=== PATIENT | female | born 1960 | race Caucasian/White ===

== ENCOUNTER → 2017-06-21 | Outpatient (CLI) | payer MEDICARE, MEDICAID ==
--- NOTE | 2017-06-25 09:46 | Diagnostic Imaging Report ---
Bilateral screening mammogram 2D views The current study was also evaluated with a Computer Aided Detection (CAD) system. Indication: Screening. No current complaints stated on the questionnaire. COMPARISON: None. This is a baseline exam. FINDINGS: The breasts are composed of heterogeneously dense parenchyma which may decrease mammographic sensitivity. The patient is mentally challenged and could not fully cooperate for optimal views with particularly the MLO views not reaching into the pectoralis muscle margins. In the upper outer aspect of the right breast there is a oval circumscribed mass measuring 8 mm in size. The left breast demonstrate no definite focal lesion. Benign appearing calcifications are seen. IMPRESSION: 8mm oval mass in the upper outer aspect of the right breast is seen. Ultrasound evaluation is recommended. BI-RADS 0. ACR BI-RADS Category 0: Incomplete. (Needs additional imaging evaluation). Result letter will be mailed to the patient. Note: At least 10% of breast cancer is not imaged by mammography. Dictated by: Dictated on workstation # [id number]
== END ==
LOC: RAD 13:22
PROVIDERS: ATTEND Family Medicine
DX: Z12.31 Encounter for screening mammogram for malignant neoplasm of breast (principal)
CPT/HCPCS: 77067

== ENCOUNTER → 2017-07-17 | Outpatient (CLI) | payer MEDICARE, MEDICAID ==
--- NOTE | 2017-07-17 19:21 | Diagnostic Imaging Report ---
EXAMINATION: Right breast ultrasound. INDICATION: Upper outer right breast asymmetry, measuring 8 mm, seen on mammography of 06/21/17. FINDINGS: The upper outer quadrant was scanned with no underlying abnormality seen. IMPRESSION: Negative study. The focal asymmetry seen on mammography has well defined margins and is likely of benign etiology. No suspicious mass is noted. ACR BI-RADS Category 1: Negative. Result letter will be mailed to the patient. Note: At least 10% of breast cancer is not imaged by mammography. Dictated by: Dictated on workstation # [id number]
== END ==
LOC: RAD 10:20
PROVIDERS: ATTEND Nurse Practitioner Family
DX: R92.8 Other abnormal and inconclusive findings on diagnostic imaging of breast (principal)

== ENCOUNTER → 2017-10-03 | Outpatient (CLI) | payer MEDICARE, MEDICAID ==
--- NOTE | 2017-10-03 12:36 | Diagnostic Imaging Report ---
INDICATION: Recent fall. COMPARISON: None. FINDINGS: Three radiographic views of left hand were obtained. There is mild soft tissue swelling, posteriorly. Evaluation of underlying osseous structures demonstrates focal cortical deformity involving the posterior margins of a distal metacarpal. This is only seen on the lateral view and is felt to most likely represent the third metacarpal, although exact number cannot be definitively concluded. No other acute osseous abnormalities are seen. Joint spaces are maintained. No unexpected radiopaque foreign bodies are seen. IMPRESSION: 1. Distal metacarpal fracture only well seen on lateral view. Exact metacarpal number is indeterminate, but third metacarpal is suspected. Correlation with point tenderness is recommended. Dictated by: Dictated on workstation # [id number]
== END ==
LOC: RAD 11:04
PROVIDERS: ATTEND Nurse Practitioner Family
DX: S62.309A Unspecified fracture of unspecified metacarpal bone, initial encounter for closed fracture (principal); W19.XXXA Unspecified fall, initial encounter
CPT/HCPCS: 73130

== ENCOUNTER 2018-09-11 05:32 | Outpatient (CLI) | payer MEDICARE, MEDICAID ==
[~2018-09-11] VITALS: Ht 162.6 cm; Wt 59.9 kg
[2018-09-15] MEDS ORDERED: MULT-35 PO ×2 (09:55)
[2018-09-15] MEDS ORDERED: ACET325C5 PO ×2 (09:55)
[2018-09-15] MEDS ORDERED: LOPE2TAB34 PO ×2 (09:55)
[2018-09-15] MEDS ORDERED: DOCU-143 PO ×2 (09:55)
[2018-09-15] MEDS ORDERED: HYDR28OI2 TP ×2 (09:55)
[2018-09-15] MEDS ORDERED: DIPH25CA79 PO ×2 (09:55)
[2018-09-15] MEDS ORDERED: IBUP-1779 PO ×2 (09:55)
[2018-09-15] MEDS ORDERED: NPB.9O TP ×2 (09:55)
[2018-09-15] MEDS ORDERED: TETR15DR49 OP ×2 (09:55)
[2018-09-15] MEDS ORDERED: [UNRECOGNIZED DRUG - CODE] PO ×2 (09:55)
[2018-09-15] MEDS ORDERED: CALC500T7 PO ×2 (09:55)
[2018-09-15] MEDS ORDERED: DIVA500T PO ×4 (09:55)
[2018-09-15] MEDS ORDERED: CETI10CA PO ×2 (09:55)
[2018-09-15] MEDS ORDERED: ASCO500C17 PO ×2 (09:55)
== END 2018-09-15 10:02 | disposition home or self-care (01) ==
LOC: PREOP 05:32
PROVIDERS: ATTEND Dentist General Practice
DX: Z01.818 Encounter for other preprocedural examination (principal)

== ENCOUNTER 2018-09-16 11:02 | Day surgery (SDC) | payer MEDICARE, MEDICAID ==
[~2018-09-16] VITALS: Ht 162.6 cm; Wt 59.9 kg
[~2018-09-16 11:02] MED LIST: ACET325C5 PO; ASCO500C17 PO; CALC500T7 PO; CETI10CA PO; DIPH25CA79 PO; DIVA500T PO; DOCU-143 PO; HYDR28OI2 TP; IBUP-1779 PO; LOPE2TAB34 PO; MULT-35 PO; NPB.9O TP; TETR15DR49 OP; [UNRECOGNIZED DRUG - CODE] PO
--- OUTSIDE RECORDS SUMMARY | 2018-09-16 11:25 | XMS REPORT ---
Author Author ESEQUIEL SALAZAR [facility] DENTAL Address [address] [place] [address] Care Team Providers Care Awning Spreader Name Role Phone ESEQUIEL SALAZAR Unavailable PROBLEMS Unknown Problems ALLERGIES No Information SOCIAL HISTORY Never Assessed PLAN OF CARE Activity Details Follow Up Recall Reason: VITAL SIGNS MEDICATIONS Unknown Medications RESULTS No Results PROCEDURES Procedure Date Ordered Result Body Site PERIODIC ORAL EXAMINATION December 25, 2016 IMMUNIZATIONS No Known Immunizations
--- OUTSIDE RECORDS SUMMARY | 2018-09-16 11:25 | XMS REPORT | CCD ---
Author Author JHONATHAN REYNOLDS Unknown Address [address] [address] [id number] Care Team Providers Care Manager Biologics Name Role Phone KIMBERLEYEsthelaDAMON DDS Attphys Vital Signs Vital Sign Value Unit Date/Time Recent/Initial? Weight Measured 133 lbs 05/08/2016 07:12 Initial VS Height 64 in 05/08/2016 07:12 Initial VS BMI (Body Mass Index) 22.83 kg/m^2 05/08/2016 07:12 Initial VS BSA (Body Surface Area) 1.65 m^2 05/08/2016 07:12 Initial VS BP Systolic 154 mmHg 05/18/2016 09:48 Initial VS BP Diastolic 85 mmHg 05/18/2016 09:48 Initial VS Respiratory Rate 15 bpm 05/18/2016 09:48 Initial VS Heart Rate 71 bpm 05/18/2016 09:48 Initial VS O2 % BldC Oximetry 96 % 05/18/2016 09:48 Initial VS BP Systolic 133 mmHg 05/18/2016 10:08 Most Recent VS BP Diastolic 83 mmHg 05/18/2016 10:08 Most Recent VS Respiratory Rate 14 bpm 05/18/2016 10:08 Most Recent VS Heart Rate 69 bpm 05/18/2016 10:08 Most Recent VS O2 % BldC Oximetry 94 % 05/18/2016 10:08 Most Recent VS Allergies Allergy Code Allergy Type Reaction Status No Known Drug Allergies 0 No known drug allergies Active Procedures Procedure Code Procedure Type Date Unlisted procedure, dentoalveolar structures 16818 CPT 02/2016 History of Immunizations Unknown or Not Available. Problems Unknown or Not Available. Results Unknown or Not Available. Active Medications No Active Medications Medications Administered During Visit Unknown or Not Available. Encounters Encounter Diagnosis Diagnosis Code Start Date Other specified disorders of teeth and supporting structures K088 05/18/2016 Social History Smoking Status Code Start Date End Date Never smoker [id number] Patient Decision Aids Patient Decision Aid DENTAL PROCEDURE DISCHARGE INSTRUCTIONS Discharge Instructions You were admitted to [facility] on 05/18/2016 08:16 with a principal diagnosis of Other specified disorders of teeth and supporting structures You had the following procedures done: Unlisted procedure, dentoalveolar structures You were discharged from [facility] on 05/18/2016 11:07 Should you have any questions prior to discharge, please contact a member of your healthcare team. If you have left the hospital and have any questions, please contact your primary care physician. Chief Complaint and Reason For Visit Chief Complaint Date of Onset DEN EXTRACTIONS FILLINGS Function Status Unknown or Not Available. Plan of Care Unknown or Not Available. Referral/Transition of Care Unknown or Not Available.
[2018-09-16 11:30] VITALS: BP 142/90
[2018-09-16] MEDS ORDERED: LACTATED RINGERS 1,000 ML IV PRN (11:47)
[2018-09-16] MEDS ORDERED: DEXAMETHASONE 10 MG/ML (DECADRON) 1 ML VIAL ONE (12:10)
[2018-09-16] MEDS ORDERED: LIDOCAINE PF 2% 5 ML (XYLOCAINE) VIAL ONE (12:10)
[2018-09-16] MEDS ORDERED: fentaNYL INJECTION 100 MCG/2 ML AMP ONE (12:10)
[2018-09-16] MEDS ORDERED: proPOfol 200 MG/20 ML (DIPRIVAN) VIAL IV ONE (12:10)
[2018-09-16] MEDS ORDERED: ONDANSETRON 4 MG/2 ML (SDV) Z0FRAN ONE (12:10)
[2018-09-16] MEDS ORDERED: PHENYLEPHRINE 0.25% NASAL SPR (NEO-SYNEPHRINE) 15 ML NS ONE (12:36)
[2018-09-16] MEDS ORDERED: ROCURONIUM 10 MG/ML 5 ML SYRINGE IV ONE (12:56)
[2018-09-16] MEDS ORDERED: GLYCOPYRROLATE 0.2 MG/ML (ROBINUL) 2 ML VIAL ONE (13:24)
[2018-09-16] MEDS ORDERED: NEOSTIGMINE 1 MG/ML 5 ML SYRINGE ONE (13:24)
[2018-09-16] MEDS ORDERED: SEVOFLURANE (ULTANE) 15 ML INHAL SOLN ONE (13:42)
[2018-09-16] MEDS ORDERED: HYDROmorphone 2 MG/ML VIAL (DILAUDID) IV ONE (13:45)
[2018-09-16] MEDS ORDERED: ONDANSETRON 4 MG/2 ML (SDV) Z0FRAN IVP PRN (13:45)
[2018-09-16 14:00] VITALS: BP 99/66
--- NOTE | 2018-09-16 14:29 | Anesthesia-General Post-Op ---
General Patient Condition Mental Status/LOC: Same as Preop Cardiovascular: Satisfactory Nausea/Vomiting: Absent Respiratory: Satisfactory Pain: Controlled Complications: Absent Post Op Complications Complications None Follow Up Care/Instructions Patient Instructions None needed. Anesthesia/Patient Condition Patient Condition Patient is doing well, no complaints, stable vital signs, no apparent adverse anesthesia problems. SAHRA MARCUS DO Sep 16, 2018 14:29
[2018-09-16 14:30] VITALS: BP 113/69
[2018-09-16 15:00] VITALS: BP 105/75
--- NOTE | 2018-09-17 12:09 | OPERATIVE REPORT ---
DATE OF SERVICE: PREOPERATIVE DIAGNOSIS: Dental caries, periodontitis and . POSTOPERATIVE DIAGNOSIS: Dental caries, periodontitis and . OPERATIONS PERFORMED: Repair of numerous carious teeth, extraction of others, prophylaxis and scaling and subgingival irrigation. DESCRIPTION OF PROCEDURE: The patient was treated on an outpatient basis on following suitable premedication, taken to the OR and placed in the supine position up on the table. Anesthesia was induced. A nasotracheal intubation was accomplished and general anesthesia administered. A throat pack consisting of one wet 4 x 4 gauze sponge was placed in the oropharynx and maintained in place throughout the procedure. Mouth opening was maintained at all times with simple digital pressure and no mechanical retractors of any kind were ever utilized. Caries was removed and composite resin utilized to repair teeth numbers 3, 4, 5, 10 and 18. Teeth numbers 20, 21 and 23 were extracted. Prophylaxis was accomplished in the complete oral cavity. Subgingival scaling and irrigation was accomplished. The patient tolerated this procedure quite nicely. Following a thorough debridement of the oral cavity with a copious low water, adequate suction and compressed air, the throat pack was removed. The patient was extubated and taken to recovery in quite satisfactory condition. Job ID: [id number] DocumentID: [id number] Dictated Date: 09/17/2018 10:09:09 Ground Intelligence Officer Date: 09/17/2018 12:08:37 Dictated By: DARNELL CALDERON DDS
== END 2018-09-16 15:05 | disposition home or self-care (01) ==
LOC: SDC 11:02
PROVIDERS: ATTEND Dentist General Practice
DX: K02.9 Dental caries, unspecified (principal); K05.30 Chronic periodontitis, unspecified; Z11.2 Encounter for screening for other bacterial diseases; G40.909 Epilepsy, unspecified, not intractable, without status epilepticus; Z79.899 Other long term (current) drug therapy
CPT/HCPCS: 87081

== ENCOUNTER 2019-07-17 13:51 | Outpatient (RCR) | payer MEDICARE, MEDICAID ==
[2019-06-25 15:50] LABS: ABSOLUTE RETIC # 45 10e9/L (24-90); BASOPHILS % (AUTO) 0 % (0-10); EOSINOPHILS # (AUTO) 0.9 10^3/uL (0.0-0.3); EOSINOPHILS % (AUTO) 15 % (0-10); HEMATOCRIT 42 % (35-52); HEMOGLOBIN 13.8 G/DL (11.5-16.0); LYMPHOCYTES % (AUTO) 34 % (12-44); MEAN CORPUSCULAR HEMOGLOBIN 32 PG (25-34); MEAN CORPUSCULAR HGB CONC 33 G/DL (32-36); MEAN CORPUSCULAR VOLUME 98 FL (80-99); MEAN PLATELET VOLUME 12.3 FL (7.4-10.4); MONOCYTES # (AUTO) 0.6 X 10^3 (0.0-1.0); MONOCYTES % (AUTO) 10 % (0-12); NEUTROPHILS # (AUTO) 2.4 X 10^3 (1.8-7.8); NEUTROPHILS % (AUTO) 40 % (42-75); PLATELET COUNT 119 10^3/uL (130-400); RED CELL DISTRIBUTION WIDTH 15.3 % (10.0-14.5); RETICULOCYTE % 1.05 % (0.50-2.40); WHITE BLOOD COUNT 5.9 10^3/uL (4.3-11.0)
[2019-06-25 16:07] LABS: ALANINE AMINOTRANSFERASE 13 U/L (0-55); ALBUMIN 3.7 GM/DL (3.2-4.5); ALKALINE PHOSPHATASE 92 U/L (40-136); BILIRUBIN,TOTAL 0.2 MG/DL (0.1-1.0); BUN/CREATININE RATIO 41; CALCIUM 9.5 MG/DL (8.5-10.1); CARBON DIOXIDE 33 MMOL/L (21-32); CHLORIDE 102 MMOL/L (98-107); CREATININE SERUM 0.66 MG/DL (0.60-1.30); GFR ESTIMATED > 60; GLUCOSE 83 MG/DL (70-105); POTASSIUM 4.9 MMOL/L (3.6-5.0); SODIUM 138 MMOL/L (135-145); TOTAL PROTEIN 8.1 GM/DL (6.4-8.2)
[2019-06-25 18:17] LABS: ANISOCYTOSIS SLIGHT; BAND NEUTROPHILS 1 %; BASOPHILS % (MANUAL) 0 %; EOSINOPHILS % (MANUAL) 18 %; LYMPHOCYTES % (MANUAL) 37 %; MONOCYTES % (MANUAL) 5 %; NEUTROPHILS % (MANUAL) 39 %
[2019-06-26 00:02] LABS: HEPATITIS C ANTIBODY C Non-Reactive (Non-Reactive)
== END 2019-09-23 | disposition home or self-care (01) ==
LOC: ONC 13:51
PROVIDERS: ATTEND Internal Medicine Hematology & Oncology
DX: D69.6 Thrombocytopenia, unspecified (principal)
CPT/HCPCS: 36415; 80053; 80074; 82607; 82728; 82746; 83540; 85007; 85027; 85045; 86703; 99213

== ENCOUNTER → 2019-10-16 | Outpatient (CLI) | payer MEDICARE, MEDICAID ==
[2019-10-16 10:07] LABS: BASOPHILS % (AUTO) 1 % (0-10); EOSINOPHILS # (AUTO) 0.7 10^3/uL (0.0-0.3); EOSINOPHILS % (AUTO) 15 % (0-10); HEMATOCRIT 42 % (35-52); HEMOGLOBIN 13.6 G/DL (11.5-16.0); LYMPHOCYTES # (AUTO) 2.1 X 10^3 (1.0-4.0); LYMPHOCYTES % (AUTO) 43 % (12-44); MEAN CORPUSCULAR HEMOGLOBIN 32 PG (25-34); MEAN CORPUSCULAR HGB CONC 32 G/DL (32-36); MEAN CORPUSCULAR VOLUME 99 FL (80-99); MEAN PLATELET VOLUME 11.5 FL (7.4-10.4); MONOCYTES # (AUTO) 0.6 X 10^3 (0.0-1.0); MONOCYTES % (AUTO) 12 % (0-12); NEUTROPHILS # (AUTO) 1.4 X 10^3 (1.8-7.8); NEUTROPHILS % (AUTO) 29 % (42-75); PLATELET COUNT 110 10^3/uL (130-400); RED CELL DISTRIBUTION WIDTH 15.2 % (10.0-14.5); WHITE BLOOD COUNT 4.9 10^3/uL (4.3-11.0)
== END ==
LOC: EDSTATUS 09-24 09:52 → ONC 09:53
PROVIDERS: ATTEND Internal Medicine Hematology & Oncology
DX: D69.6 Thrombocytopenia, unspecified (principal)
CPT/HCPCS: 85025; 99213

== ENCOUNTER → 2020-08-22 | Outpatient (CLI) | payer MEDICARE, MEDICAID ==
[~2020-08-22] MED LIST changes: -ACET325C5 PO; +ACET325C7 PO; +[UNRECOGNIZED DRUG - CODE] PO; -[UNRECOGNIZED DRUG - CODE] PO
--- NOTE | 2020-08-22 14:51 | Diagnostic Imaging Report ---
INDICATION: Cough and hypoxia. TECHNIQUE/COMPARISON: PA and lateral views of the chest were obtained. There is no previous study available at this time for comparison. FINDINGS: The heart size and pulmonary vascularity are within normal limits. There is background air trapping indicating emphysema. There is focal increased density which appears to reside within the lateral segment of the right middle lobe. There is mild linear atelectasis and/or scarring in the right perihilar region as well. No significant pleural fluid or pneumothorax is identified. IMPRESSION: Probable infiltrate involving primarily the right middle lobe. This could be due to pneumonia and clinical correlation is recommended. Short-term radiographic followup would be useful to document resolution and to exclude other underlying pathology. Dictated by: Dictated on workstation # [id number]
== END ==
LOC: RAD 14:23
PROVIDERS: ATTEND Nurse Practitioner Family
DX: R05 Cough (principal); R09.02 Hypoxemia
CPT/HCPCS: 71046

== ENCOUNTER 2021-01-19 09:08 | Emergency (ER) | payer MEDICARE, MEDICAID ==
[~2021-01-19] VITALS: Ht 162.5 cm; Wt 56.8 kg
[2021-01-19 09:33] LABS: HEMOGLOBIN 12.9 g/dL (11.5-16.0)
[2021-01-19 09:35] LABS: BASOPHILS % (AUTO) 0 % (0-10); EOSINOPHILS % (AUTO) 0 % (0-10); HEMATOCRIT 39 % (35-52); LYMPHOCYTES # (AUTO) 1.4 10^3/uL (1.0-4.0); LYMPHOCYTES % (AUTO) 30 % (12-44); MEAN CORPUSCULAR HEMOGLOBIN 32 pg (25-34); MEAN CORPUSCULAR HGB CONC 33 g/dL (32-36); MEAN CORPUSCULAR VOLUME 96 fL (80-99); MEAN PLATELET VOLUME 11.8 fL (9.0-12.2); MONOCYTES # (AUTO) 0.8 10^3/uL (0.0-1.0); MONOCYTES % (AUTO) 16 % (0-12); NEUTROPHILS # (AUTO) 2.4 10^3/uL (1.8-7.8); NEUTROPHILS % (AUTO) 52 % (42-75); PLATELET COUNT 89 10^3/uL (130-400); WHITE BLOOD COUNT 4.6 10^3/uL (4.3-11.0)
[2021-01-19 09:37] LABS: CHLORIDE 97 MMOL/L (98-107); POTASSIUM 4.5 MMOL/L (3.6-5.0); SODIUM 135 MMOL/L (135-145)
[2021-01-19 09:38] LABS: CALCIUM 8.9 MG/DL (8.5-10.1)
[2021-01-19 09:39] LABS: GLUCOSE 112 MG/DL (70-105)
[2021-01-19 09:40] LABS: CARBON DIOXIDE 27 MMOL/L (21-32)
[2021-01-19 09:43] LABS: CREATININE SERUM 0.72 MG/DL (0.60-1.30); GFR ESTIMATED > 60
[2021-01-19 09:44] LABS: BILIRUBIN,URINE NEGATIVE (NEGATIVE); CLARITY,URINE CLEAR; COLOR,URINE YELLOW; GLUCOSE, URINE (UA) NEGATIVE (NEGATIVE); KETONES,URINE TRACE (NEGATIVE); LEUKOCYTE ESTERASE ,URINE NEGATIVE (NEGATIVE); NITRITE,URINE POSITIVE (NEGATIVE); PROTEIN,URINE NEGATIVE (NEGATIVE)
[2021-01-19 09:44] LABS: BUN/CREATININE RATIO 33
--- NOTE | 2021-01-19 09:46 | ED General ---
General Chief Complaint: Altered Mental Status Stated Complaint: AMS Nursing Triage Note: Pt to ed per ems from [facility], staff c/o pt lethargic, not acting like herself and not responding to staff. Nursing Sepsis Screen: No Definite Risk Source of Information: Caregiver, EMS Exam Limitations: Physical Impairments History of Present Illness Date Seen by Provider: Jan 19, 2021 Time Seen by Provider: 09:20 Initial Comments Patient is a 60-year-old female who [facility] the emergency department [facility] with a chief complaint of acting "lethargic" and not interacting with staff. Patient has a history of a pervasive developmental disorder and is known to be nonverbal. She communicates by facial interaction and physical demeanor. Reportedly the patient is acting sleepier than normal and not really engaging with staff. It is not possible to obtain a review of systems from this patient or history of present illness secondary to her nonverbal state. Patient's vital signs are stable on arrival. She is not tachycardic or hypo tensive. Her oxygen saturations are 92% on room air. She exhibits no increased work of breathing or respiratory distress. Timing/Duration: 1-3 Hours Allergies and Home Medications Allergies Coded Allergies: No Known Drug Allergies (Unverified , 09/15/18) Home Medications Acetaminophen 325 Mg Capsule, 650 MG PO Q6H PRN for PAIN-MILD, (Reported) Ascorbic Acid 500 Mg Capsule, 500 MG PO DAILY, (Reported) Calcium Carbonate 200 Mg Tab.chew, 400 MG PO Q4H PRN for INDIGESTION, (Reported) Cetirizine HCl 10 Mg Capsule, 10 MG PO HS, (Reported) Diphenhydramine HCl 25 Mg Capsule, 25 MG PO Q6H PRN for CONGESTION, (Reported) Divalproex Sodium 500 Mg Tablet.dr, 500 MG PO DAILY, (Reported) Divalproex Sodium 500 Mg Tablet.dr, 1,000 MG PO HS, (Reported) Docusate Sodium 100 Mg Capsule, 100 MG PO BID, (Reported) Guaifenesin/Dextromethorphan 118 Ml Liquid, 10 ML PO Q4H PRN for COUGH, (Reported) Hydrocortisone Acetate 28 Gm Oint...g., 28 GM TP PRN, (Reported) Ibuprofen 400 Mg Tablet, 400 MG PO Q6H PRN for PAIN, (Reported) Loperamide HCl 2 Mg Tablet, 2 MG PO PRN PRN for DIARRHEA, (Reported) Multivitamin 1 Each Tablet, 1 EACH PO DAILY, (Reported) Neomycin/Polymyxin/Bacitracin 0.9 Gm Oint, 0.9 GM TP PRN, (Reported) Tetrahydrozoline HCl 15 Ml Drops, 2 DROPS OP Q6H PRN for DRY EYES, (Reported) Patient Home Medication List Home Medication List Reviewed: Yes Review of Systems Review of Systems Constitutional: see HPI : No Review of systems unobtainable from this nonverbal patient All Other Systems Reviewed Negative Unless Noted: Yes Past Feoiotz-Zfpftz-Kykixl Hx Patient Social History Alcohol Use: Denies Use Smoking Status: Never a Smoker Recent Infectious Disease Expo: No Recent Hopitalizations: No Seasonal Allergies Seasonal Allergies: Yes Past Medical History Surgeries: No (UNKNOWN) Respiratory: No Cardiac: No Neurological: Yes (LAST SEIZURE 2013) Seizure Disorder Reproductive Disorders: No Sexually Transmitted Disease: No HIV/AIDS: No Gastrointestinal: Yes Chronic Constipation Musculoskeletal: No Endocrine: No Cancer: No Psychosocial: Yes (SEVERE INTELECTUAL DISABILITY ) Integumentary: No Blood Disorders: No Adverse Reaction/Blood Tranf: No (N/A) Physical Exam Vital Signs Vital Signs - First Documented 01/19/21 09:12 Temp 35.2 Pulse 70 Resp 18 B/P (MAP) 116/71 (86) Pulse Ox 94 Capillary Refill : Less Than 3 Seconds Height, Weight, BMI Height: 5'4.00" Weight: 132lbs. 0.0oz. 59.692027dy; 21.00 BMI Method: General Appearance: No Apparent Distress (Appears to be sleeping.), WD/WN Eyes: Bilateral Eye Normal Inspection, Bilateral Eye PERRL Neck: Normal Inspection Respiratory: Lungs Clear, Normal Breath Sounds, No Accessory Muscle Use, No Respiratory Distress Cardiovascular: Regular Rate, Rhythm Gastrointestinal: Normal Bowel Sounds, No Pulsatile Mass, Non Tender, Soft Extremity: Normal Capillary Refill, Normal Inspection, Non Tender Progress/Results/Core Measures Suspected Sepsis Recent Fever Within 48 Hours: No Infection Criteria Present: None New/Unexplained Altered Menta: No Sepsis Screen: No Definite Risk SIRS Temperature: Pulse: 70 Respiratory Rate: 18 Laboratory Tests 01/19/21 09:14: White Blood Count 4.6 Blood Pressure 116 /71 Mean: 86 Laboratory Tests 01/19/21 09:14: Creatinine 0.72, Platelet Count 89L Results/Orders Lab Results Laboratory Tests Test 01/19/21 09:14 01/19/21 09:18 01/19/21 09:38 Range/Units White Blood Count 4.6 4.3-11.0 10^3/uL Red Blood Count 4.06 3.80-5.11 10^6/uL Hemoglobin 12.9 11.5-16.0 g/dL Hematocrit 39 35-52 % Mean Corpuscular Volume 96 80-99 fL Mean Corpuscular Hemoglobin 32 25-34 pg Mean Corpuscular Hemoglobin Concent 33 32-36 g/dL Red Cell Distribution Width 14.4 10.0-14.5 % Platelet Count 89 L 130-400 10^3/uL Mean Platelet Volume 11.8 9.0-12.2 fL Immature Granulocyte % (Auto) 1 % Neutrophils (%) (Auto) 52 42-75 % Lymphocytes (%) (Auto) 30 12-44 % Monocytes (%) (Auto) 16 H 0-12 % Eosinophils (%) (Auto) 0 0-10 % Basophils (%) (Auto) 0 0-10 % Neutrophils # (Auto) 2.4 1.8-7.8 10^3/uL Lymphocytes # (Auto) 1.4 1.0-4.0 10^3/uL Monocytes # (Auto) 0.8 0.0-1.0 10^3/uL Eosinophils # (Auto) 0.0 0.0-0.3 10^3/uL Basophils # (Auto) 0.0 0.0-0.1 10^3/uL Immature Granulocyte # (Auto) 0.1 0.0-0.1 10^3/uL Sodium Level 135 135-145 MMOL/L Potassium Level 4.5 3.6-5.0 MMOL/L Chloride Level 97 L 98-107 MMOL/L Carbon Dioxide Level 27 21-32 MMOL/L Anion Gap 11 5-14 MMOL/L Blood Urea Nitrogen 24 H 7-18 MG/DL Creatinine 0.72 0.60-1.30 MG/DL Estimat Glomerular Filtration Rate > 60 BUN/Creatinine Ratio 33 Glucose Level 112 H 70-105 MG/DL Calcium Level 8.9 8.5-10.1 MG/DL Valproic Acid (Depakene) Level 65.7 50.0-100.0 UG/ML Urine Color YELLOW Urine Clarity CLEAR Urine pH 6.0 5-9 Urine Specific [place] >=1.030 1.016-1.022 Urine Protein NEGATIVE NEGATIVE Urine Glucose (UA) NEGATIVE NEGATIVE Urine Ketones TRACE H NEGATIVE Urine Nitrite POSITIVE H NEGATIVE Urine Bilirubin NEGATIVE NEGATIVE Urine Urobilinogen 1.0 < = 1.0 MG/DL Urine Leukocyte Esterase NEGATIVE NEGATIVE Urine RBC (Auto) TRACE-I NEGATIVE Urine RBC 2-5 H /HPF Urine WBC 2-5 /HPF Urine Squamous Epithelial Cells RARE /HPF Urine Crystals NONE /LPF Urine Bacteria LARGE H /HPF Urine Casts NONE /LPF Urine Mucus NEGATIVE /LPF Urine Culture Indicated YES My Orders Orders - MIRIAM FRANCO MD Cbc With Automated Diff (01/19/21 09:26) Basic Metabolic Panel (01/19/21 09:26) Ua Culture If Indicated (01/19/21 09:26) Valproic Acid (01/19/21 09:48) Urine Culture (01/19/21 09:38) Ceftriaxone For Iv Use (Rocephin For I (01/19/21 10:30) Ns Iv 1000 Ml (Sodium Chloride 0.9%) (01/19/21 10:30) Medications Given in ED Current Medications Medications Dose Ordered Sig/Noemi Route Start Time Stop Time Status Last Admin Dose Admin Ceftriaxone Sodium 1000 mg/ Sterile Water 10 ml @ 200 mls/hr ONCE ONCE IV 01/19/21 10:30 01/19/21 10:32 DC 01/19/21 10:28 200 MLS/HR Vital Signs/I&O 01/19/21 09:12 Temp 35.2 Pulse 70 Resp 18 B/P (MAP) 116/71 (86) Pulse Ox 94 Capillary Refill : Less Than 3 Seconds Blood Pressure Mean: 86 Progress Note : Time: 10:41 Progress Note Patient is awake alert, fiddling with medical equipment. No acute distress. Labs have been evaluated, no abnormalities on CBC or chemistry. Patient is noted to have a urinary tract infection that is nitrite positive. Given a gram of Rocephin here in the department as well as a liter of fluids. No clinical or objective findings to warrant further studies from the emergency department. I do not believe that the patient needs admission at this time. Will be discharged home with Keflex and follow-up with her primary care physician. ECG Initial ECG Impression: 3rd Degree AV Block Departure Impression Primary Impression: Urinary tract infection Qualified Codes: N39.0 - Urinary tract infection, site not specified Disposition: 01 HOME, SELF-CARE Condition: Stable Departure-Patient Inst. Decision time for Depature: 10:43 Referrals: DAVIAN CONKLIN MD (PCP/Family) Primary Care Physician Patient Instructions: Urinary Tract Infection, Adult (DC) Add. Discharge Instructions: Encourage plenty of fluids so that she stays well-hydrated. Give the antibiotics, Keflex, 3 times daily for the next 7 days. Return to the emergency room for fever, vomiting, change in mental status or any other emergent concerning symptoms. Scripts Cephalexin (Cephalexin) 500 Mg Tablet 500 MG PO TID, #21 TAB 0 Refills Prov: MIRIAM FRANCO MD 01/19/21 MIRIAM FRANCO MD Jan 19, 2021 09:46
[2021-01-19 09:52] LABS: BACTERIA,URINE LARGE /HPF; SQUAMOUS EPITHELIAL CELL,UR RARE /HPF
[2021-01-19] MEDS ORDERED: cefTRIAXone FOR IV USE 1,000 MG in WATER (STERILE) FOR INJECTION 10 ML IV ONE (10:30)
[2021-01-19] MEDS ORDERED: NS IV 1000 ML 1,000 ML IV SCH (10:30)
[2021-01-19] MEDS ORDERED: CEPH500T PO (10:48)
[2021-01-19 11:50] VITALS: BP 100/65
== END 2021-01-19 11:50 | disposition home or self-care (01) ==
LOC: EDUNIT# 09:08 → ER 09:09
DX: N39.0 Urinary tract infection, site not specified (principal); F84.9 Pervasive developmental disorder, unspecified; G40.909 Epilepsy, unspecified, not intractable, without status epilepticus; K59.09 Other constipation
CPT/HCPCS: 36415; 80048; 80164; 81000; 85025; 87077; 87088; 87186; 99283

== ENCOUNTER → 2021-12-01 | Outpatient (CLI) | payer MEDICARE, MEDICAID ==
[~2021-12-01] MED LIST changes: +CEPH500T PO
--- NOTE | 2021-12-01 11:47 | Diagnostic Imaging Report ---
Digital mammogram bilateral screening This study was compared to the prior exam of 06/21/2017. At this time, there are no current complaints. This study was technically difficult as the patient is mentally challenged and it was difficult for her to cooperate. The fibroglandular tissue in both breasts is heterogeneously dense. This does limit the sensitivity of this exam. A few scattered microcalcifications have developed in the left breast since the prior exam. These seems similar in appearance to the other microcalcifications in the left breast and consequently I suspect that they are benign. There is no primary or secondary sign of malignancy noted. IMPRESSION: 1. There is no evidence for malignancy on this suboptimal exam. 2. The newly developed calcifications within the left breast are most likely benign. Even so, I would recommend that a short-term (6 month) follow-up mammogram of the left breast be obtained for continued evaluation. ACR category 3 ACR BI-RADS Category 3: Probably benign findings. Result letter will be mailed to the patient. Note: At least 10% of breast cancer is not imaged by mammography. Dictated on workstation # [id number]
== END ==
LOC: RAD 10:07
PROVIDERS: ATTEND Nurse Practitioner Family
DX: Z12.31 Encounter for screening mammogram for malignant neoplasm of breast (principal); R92.1 Mammographic calcification found on diagnostic imaging of breast
CPT/HCPCS: 77063; 77067

== ENCOUNTER 2022-07-05 16:20 | Inpatient (IN) | payer MEDICARE, MEDICAID ==
[~2022-07-05] VITALS: Ht 162.5 cm; Wt 53.1 kg
[~2022-07-05 16:20] MED LIST changes: -TETR15DR49 OP; +TETR15DR49 OU
--- NOTE | 2022-07-05 17:13 | Diagnostic Imaging Report ---
CLINICAL HISTORY: Fall. Right hip pain. COMPARISON: None. TECHNIQUE: 3 views of the pelvis and right hip. FINDINGS: Nondisplaced fracture seen involving the neck of the proximal right femur. No dislocation of the right femur. No fracture is identified in the pelvis. No suspicious focal osseous lesions are seen. IMPRESSION: 1. Nondisplaced fracture involving the neck of the proximal right femur. No dislocation of the right hip. Dictated by: Dictated on workstation # [id number]
--- NOTE | 2022-07-05 17:16 | Diagnostic Imaging Report ---
CLINICAL HISTORY: Fall. Right hip pain. COMPARISON: None. TECHNIQUE: Four views of the right femur. FINDINGS: Nondisplaced fracture is seen involving the neck of the proximal right femur. No dislocation of the right hip. No suspicious lesions are seen in the right femur. IMPRESSION: 1. Nondisplaced fracture involving the neck of the proximal right femur. Dictated by: Dictated on workstation # [id number]
[2022-07-05] MEDS ORDERED: morphine INJ 10 MG/ML 1ML (SYR OR VIAL) IVP STA (17:59)
--- NOTE | 2022-07-05 17:59 | ED Lower Extremity ---
General Chief Complaint: Trauma-Non Activation Stated Complaint: FALL/RT HIP PAIN Nursing Triage Note: from [facility], patient is reported to have fallen on her right hip. now will not bear weight on the right side. 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 Caregiver states pt stood up and tripped landing on her right side. There was no head trauma or LOC reported. Patient usually is ambulatory but has not been willing to bear weight since the time of the fall. Patient is nonverbal and is a resident at [facility]. She presents with a caregiver who is familiar with her baseline. Onset: just prior to arrival Severity: moderate Pain/Injury Location: right hip Method of Injury: fell Allergies and Home Medications Allergies Coded Allergies: No Known Drug Allergies (Unverified , 09/15/18) Patient Home Medication List Home Medication List Reviewed: Yes Acetaminophen (Tylenol) 325 Mg Capsule, 650 MG PO Q6H PRN for PAIN-MILD, (Reported) Entered as Reported by: PAIGE NAVARRO on 09/15/18 0955 Ascorbic Acid (Vitamin C) 500 Mg Capsule, 500 MG PO DAILY, (Reported) Entered as Reported by: PAIGE NAVARRO on 09/15/18 0955 Calcium Carbonate (Tums) 200 Mg Tab.chew, 400 MG PO Q4H PRN for INDIGESTION, (Reported) Entered as Reported by: PAIGE NAVARRO on 09/15/18 0955 Cephalexin (Cephalexin) 500 Mg Tablet, 500 MG PO TID Prescribed by: MIRIAM FRANCO on 01/19/21 1048 Cetirizine HCl (Zyrtec) 10 Mg Capsule, 10 MG PO HS, (Reported) Entered as Reported by: PAIGE NAVARRO on 09/15/18 0955 Diphenhydramine HCl (Benadryl) 25 Mg Capsule, 25 MG PO Q6H PRN for CONGESTION, (Reported) Entered as Reported by: PAIGE NAVARRO on 09/15/18 0955 Divalproex Sodium (Depakote) 500 Mg Tablet.dr, 500 MG PO DAILY, (Reported) Entered as Reported by: PAIGE NAVARRO on 09/15/18954 Divalproex Sodium (Depakote) 500 Mg Tablet., 1,000 MG PO HS, (Reported) Entered as Reported by: PAIGE NAVARRO on 09/15/18954 Docusate Sodium (Colace) 100 Mg Capsule, 100 MG PO BID, (Reported) Entered as Reported by: PAIGE NAVARRO on 09/15/18954 Guaifenesin/Dextromethorphan (Robafen Dm Cough Liquid) 118 Ml Liquid, 10 ML PO Q4H PRN for COUGH, (Reported) Entered as Reported by: PAIGE NAVARRO on 09/15/18954 Hydrocortisone Acetate (Hydrocortisone) 28 Gm Oint...g., 28 GM TP PRN, (Reported) Entered as Reported by: PAIGE NAVARRO on 09/15/18954 Ibuprofen (Ibuprofen) 400 Mg Tablet, 400 MG PO Q6H PRN for PAIN, (Reported) Entered as Reported by: PAIGE NAVARRO on 09/15/18954 Loperamide HCl (Loperamide) 2 Mg Tablet, 2 MG PO PRN PRN for DIARRHEA, (Reported) Entered as Reported by: PAIGE NAVARRO on 09/15/18954 Multivitamin (Daily Multiple Vitamin) 1 Each Tablet, 1 EACH PO DAILY, (Reported) Entered as Reported by: PAIGE NAVARRO on 09/15/18954 Neomycin/Polymyxin/Bacitracin (Triple Antibiotic Ointment) 0.9 Gm Oint, 0.9 GM TP PRN, (Reported) Entered as Reported by: PAIGE NAVARRO on 09/15/18954 Tetrahydrozoline HCl (Tetrahydrozoline HCl) 15 Ml Drops, 2 DROPS OP Q6H PRN for DRY EYES, (Reported) Entered as Reported by: PAIGE NAVARRO on 09/15/18954 Review of Systems Constitutional: see HPI EENTM: see HPI Respiratory: no symptoms reported Cardiovascular: no symptoms reported Gastrointestinal: no symptoms reported Genitourinary: no symptoms reported Musculoskeletal: other (right hip pain) Skin: no symptoms reported Psychiatric/Neurological: No Symptoms Reported Past Crdujpq-Mgedqt-Woeayr Hx Patient Social History Tobacco Use?: No Substance use?: No Alcohol Use?: No Seasonal Allergies Seasonal Allergies: Yes Past Medical History Surgeries: No (UNKNOWN) Respiratory: No Cardiac: No Neurological: Yes (LAST SEIZURE 2013) Seizure Disorder Reproductive Disorders: No Sexually Transmitted Disease: No HIV/AIDS: No Gastrointestinal: Yes Chronic Constipation Musculoskeletal: No Endocrine: No Cancer: No Psychosocial: Yes (SEVERE INTELECTUAL DISABILITY ) Integumentary: No Blood Disorders: No Adverse Reaction/Blood Tranf: No (N/A) Physical Exam Vital Signs Vital Signs - First Documented 07/05/22 16:25 Temp 36.2 Pulse 95 Resp 16 B/P (MAP) 90/65 (73) Pulse Ox 91 O2 Delivery Room Air Capillary Refill : Less Than 3 Seconds Height, Weight, BMI Height: 5'4.00" Weight: 132lbs. 0.0oz. 59.080921kh; 22.00 BMI Method: General Appearance: WD/WN, no apparent distress HEENT: PERRL/EOMI, normal ENT inspection, TMs normal, pharynx normal Neck: non-tender, full range of motion, supple, normal inspection Cardiovascular: normal peripheral pulses, regular rate, rhythm, no edema, no gallop, no JVD, no murmur Respiratory: chest non-tender, lungs clear, normal breath sounds, no respiratory distress, no accessory muscle use Gastrointestinal: normal bowel sounds, non tender, soft, no organomegaly, no pulsatile mass Back: normal inspection, no CVA tenderness, no vertebral tenderness Hips: right hip bone tenderness, right hip limited range of motion, right hip pain Progress/Results/Core Measures Results/Orders Lab Results Laboratory Tests Test 07/05/22 18:30 Range/Units White Blood Count 12.0 H 4.3-11.0 10^3/uL Red Blood Count 3.98 3.80-5.11 10^6/uL Hemoglobin 12.5 11.5-16.0 g/dL Hematocrit 39 35-52 % Mean Corpuscular Volume 98 80-99 fL Mean Corpuscular Hemoglobin 31 25-34 pg Mean Corpuscular Hemoglobin Concent 32 32-36 g/dL Red Cell Distribution Width 15.7 H 10.0-14.5 % Platelet Count 271 130-400 10^3/uL Mean Platelet Volume 10.5 9.0-12.2 fL Immature Granulocyte % (Auto) 0 % Neutrophils (%) (Auto) 79 H 42-75 % Lymphocytes (%) (Auto) 11 L 12-44 % Monocytes (%) (Auto) 8 0-12 % Eosinophils (%) (Auto) 2 0-10 % Basophils (%) (Auto) 0 0-10 % Neutrophils # (Auto) 9.4 H 1.8-7.8 10^3/uL Lymphocytes # (Auto) 1.3 1.0-4.0 10^3/uL Monocytes # (Auto) 1.0 0.0-1.0 10^3/uL Eosinophils # (Auto) 0.2 0.0-0.3 10^3/uL Basophils # (Auto) 0.1 0.0-0.1 10^3/uL Immature Granulocyte # (Auto) 0.1 0.0-0.1 10^3/uL Neutrophils % (Manual) 71 % Lymphocytes % (Manual) 12 % Monocytes % (Manual) 10 % Eosinophils % (Manual) 4 % Basophils % (Manual) 1 % Band Neutrophils 2 % Stomatocytes SLIGHT Sodium Level 144 135-145 MMOL/L Potassium Level 4.3 3.6-5.0 MMOL/L Chloride Level 103 98-107 MMOL/L Carbon Dioxide Level 31 21-32 MMOL/L Anion Gap 10 5-14 MMOL/L Blood Urea Nitrogen 25 H 7-18 MG/DL Creatinine 0.66 0.60-1.30 MG/DL Estimat Glomerular Filtration Rate 99 BUN/Creatinine Ratio 38 Glucose Level 124 H 70-105 MG/DL Calcium Level 10.0 8.5-10.1 MG/DL Corrected Calcium 10.3 H 8.5-10.1 MG/DL Total Bilirubin 0.3 0.1-1.0 MG/DL Aspartate Amino Transf (AST/SGOT) 33 5-34 U/L Alanine Aminotransferase (ALT/SGPT) 18 0-55 U/L Alkaline Phosphatase 76 40-136 U/L Total Protein 7.9 6.4-8.2 GM/DL Albumin 3.6 3.2-4.5 GM/DL My Orders Orders - CARLA ALMONTE FIBER OPTICS SUPERVISOR Pelvis With Right Hip 2-3views (07/05/22 16:48) Femur, Right, 2 Views (07/05/22 16:48) Iv/Invasive Line Insertion .IV INSERT (07/05/22 17:59) Morphine Injection (Morphine Injection (07/05/22 17:59) Cbc And Manual Diff (07/05/22 17:59) Comprehensive Metabolic Panel (07/05/22 17:59) Ed Admission (Communication) (07/05/22 19:15) Vital Signs/I&O 07/05/22 16:25 Temp 36.2 Pulse 95 Resp 16 B/P (MAP) 90/65 (73) Pulse Ox 91 O2 Delivery Room Air Blood Pressure Mean: 73 Progress Progress Note : Progress Note Patient is nontoxic and well hydrated on exam. Pt does appear to have painful response when the R lateral hip is palpated. No significant shortening or rotation of the R hip noted on exam. Xrays notable for right femoral neck fra cture. Will admit for further evauation and treatment. Ortho was consulted and kindly agreed to see the patient. The hospitalist kindly agreed to admit the patient after basic screening labs resulted without any significant abnormalities. Consults : Consulting Physician: SHAHLA QUINONEZ MD Consults Notes admit to hospitalist with ortho consulting; no acute recommendations other than NPO after midnight for likely operative repair in the AM Departure Impression Primary Impression: Fracture of femoral neck, right Disposition: ADMITTED INPATIENT Condition: Stable Admissions Decision to Admit Reason: Admit from ER (General) Decision to Admit/Date: Jul 05, 2022 Time/Decision to Admit Time: 19:05 Departure-Patient Inst. Referrals: STEPHANE XAVIER MD (PCP/Family) Primary Care Physician CARLA ALMONTE APRN Jul 05, 2022 17:59
[2022-07-05 18:35] LABS: BASOPHILS # (AUTO) 0.1 10^3/uL (0.0-0.1); BASOPHILS % (AUTO) 0 % (0-10); EOSINOPHILS # (AUTO) 0.2 10^3/uL (0.0-0.3); EOSINOPHILS % (AUTO) 2 % (0-10); HEMATOCRIT 39 % (35-52); HEMOGLOBIN 12.5 g/dL (11.5-16.0); LYMPHOCYTES # (AUTO) 1.3 10^3/uL (1.0-4.0); LYMPHOCYTES % (AUTO) 11 % (12-44); MEAN CORPUSCULAR HEMOGLOBIN 31 pg (25-34); MEAN CORPUSCULAR HGB CONC 32 g/dL (32-36); MEAN CORPUSCULAR VOLUME 98 fL (80-99); MEAN PLATELET VOLUME 10.5 fL (9.0-12.2); MONOCYTES % (AUTO) 8 % (0-12); NEUTROPHILS # (AUTO) 9.4 10^3/uL (1.8-7.8); NEUTROPHILS % (AUTO) 79 % (42-75); PLATELET COUNT 271 10^3/uL (130-400)
[2022-07-05 18:56] LABS: ALBUMIN 3.6 GM/DL (3.2-4.5)
[2022-07-05 18:57] LABS: POTASSIUM 4.3 MMOL/L (3.6-5.0)
[2022-07-05 18:59] LABS: TOTAL PROTEIN 7.9 GM/DL (6.4-8.2)
[2022-07-05 19:01] LABS: BILIRUBIN,TOTAL 0.3 MG/DL (0.1-1.0)
[2022-07-05 19:02] LABS: CREATININE SERUM 0.66 MG/DL (0.60-1.30)
[2022-07-05 19:09] LABS: BAND NEUTROPHILS 2 %; BASOPHILS % (MANUAL) 1 %; EOSINOPHILS % (MANUAL) 4 %; LYMPHOCYTES % (MANUAL) 12 %; MONOCYTES % (MANUAL) 10 %; NEUTROPHILS % (MANUAL) 71 %; STOMATOCYTES SLIGHT
[2022-07-05 20:15] VITALS: BP 105/69
[2022-07-05] MEDS: morphine INJ 4 MG/ML 1 ML (VIAL/SYRINGE) IVP PRN (22:02)
--- NOTE | 2022-07-05 23:00 | CONSULTATION REPORT ---
DATE OF SERVICE: 07/05/2022 INPATIENT CONSULTATION REASON FOR CONSULTATION: Right hip fracture. HISTORY OF PRESENT ILLNESS: The patient is a 62-year-old female, who is nonverbal, impaired female who fell on her right side. Today, she was unable to bear weight. She presented to the Emergency Department where she was found to have displaced right femoral neck fracture. ALLERGIES: NO KNOWN DRUG ALLERGIES. MEDICATIONS: Vitamin C, Tylenol, calcium, Zyrtec, Benadryl, Depakote, Colace. SOCIAL HISTORY: The patient denies alcohol and tobacco use. PAST SURGICAL HISTORY: Unknown. PAST MEDICAL HISTORY: Seizure disorder and severe intellectual disability. ORTHOPEDIC EXAM: The right lower extremity is shortened and externally rotated. She has symmetric pulses with intact dorsiflexion and plantarflexion of the toes. Radiographs reveal displaced right femoral neck fracture. IMPRESSION: Displaced right femoral neck fracture. PLAN: Right hip bipolar replacement. Risks, benefits, options, ramifications and recovery were discussed with the patient's caregiver. They understand and wished to proceed. Job ID: [id number] DocumentID: [id number] Dictated Date: 07/05/2022 19:40:35 Steam Fitter Helper Date: 07/05/2022 22:59:52 Dictated By: SHAHLA QUINONEZ MD
[2022-07-06] VITALS (13 sets, daily range): BP systolic 90–137; BP diastolic 61–85
[2022-07-06] MEDS: NS IV 1000 ML 1,000 ML IV SCH ×2 (00:48→11:02)
[2022-07-06] MEDS: morphine INJ 4 MG/ML 1 ML (VIAL/SYRINGE) IVP PRN (03:27)
--- NOTE | 2022-07-06 07:49 | History & Physical-Hospitalist ---
History of Present Illness HPI/Chief Complaint Patient is a 62-year-old female with past medical history of seizure disorder, intellectual disability who is nonverbal and presented to the emergency department following a fall. As stated above she is nonverbal so all history is obtained from the records. There is no caregiver at bedside. Caregiver reported to the emergency department yesterday that she stood up and had a mechanical fall. She tripped and landed on her right side. She then had right hip and upper leg pain. Imaging was done and revealed an acute fracture. She is being admitted for operative repair. RN reports no concerns overnight. Source: patient Date Seen 07/06/22 Time Seen by a Provider: 09:15 Attending Physician Dani Slade MD PCP Admitting Physician: Sandra Khan MD Attending Physician: Sandra Khan MD Referring Physician SHAHLA QUINONEZ MD Date of Admission Jul 05, 2022 at 19:17 Home Medications & Allergies Home Medications Reviewed patient Home Medication Reconciliation performed by pharmacy medication reconciliations plastic surgery technician and/or nursing. Patients Allergies have been reviewed. Allergies Allergies Coded Allergies No Known Drug Allergies (Pxuxjzznge16/3/18) Past Fasebbv-Hgstpr-Abfdlm Hx Patient Social History Employed/Student: unemployed Tobacco Use?: No Use of E-Cig and/or Vaping dev: No Substance use?: No Alcohol Use?: No Pt feels they are or have been: Unable to obtain Seasonal Allergies Seasonal Allergies: Yes Current Status status: No Advance Directives: Yes Advance Directive Location: Copy placed in chart Communicates: Signs, Gestures, Points Primary Language: Syrian Preferred Spoken Language: Syrian Is interpretation needed?: No Additional sensory deficits: NON VERBAL Past Medical History Developmental Disorder, Seizure Disorder Sexually Transmitted Disease: No HIV/AIDS: No Chronic Constipation Blood Disorders: No Adverse Reaction/Blood Tranf: No (N/A) Family Medical History Reviewed Nursing Family Hx No Pertinent Family Hx Review of Systems Constitutional: see HPI Physical Exam Physical Exam Vital Signs Vital Signs - First Documented 07/05/22 07/06/22 16:25 07:40 Temp 36.2 Pulse 95 Resp 16 B/P (MAP) 90/65 (73) Pulse Ox 91 O2 Delivery Room Air O2 Flow Rate 2.00 Capillary Refill : Less Than 3 Seconds Height, Weight, BMI Height: 5'4.00" Weight: 132lbs. 0.0oz. 59.603133wc; 19.80 BMI Method: General Appearance: No Apparent Distress, Chronically ill, Thin HEENT: PERRL/EOMI, Moist Mucous Membranes; No Scleral Icterus (L), No Scleral Icterus (R) Neck: Normal Inspection, Supple Respiratory: Lungs Clear, No Accessory Muscle Use, No Respiratory Distress Cardiovascular: Regular Rate, Rhythm, No Murmur Gastrointestinal: Normal Bowel Sounds, Non Tender, Soft Extremity: Normal Capillary Refill, No Calf Tenderness, No Pedal Edema Neurologic/Psychiatric: Alert, Oriented x3, Normal Mood/Affect Skin: Normal Color, Warm/Dry Results Results/Procedures Labs Laboratory Tests 07/05/22 18:30 07/06/22 08:19 Patient resulted labs reviewed. Imaging: Reviewed Imaging Report Imaging [facility] [place], [place] [facility] [id number] PT STATUS: REG ER : 1960 PHYSICIAN: CARLA ALMONTE APRN ADMIT DATE: 07/05/22/ER Signed Date of Exam:07/05/22 FEMUR, RIGHT, 2 VIEWS CLINICAL HISTORY: Fall. Right hip pain. COMPARISON: None. TECHNIQUE: Four views of the right femur. FINDINGS: Nondisplaced fracture is seen involving the neck of the proximal right femur. No dislocation of the right hip. No suspicious lesions are seen in the right femur. IMPRESSION: 1. Nondisplaced fracture involving the neck of the proximal right femur. Dictated by: Dictated on workstation # [id number] Dict: 07/05/221711 Trans: 07/05/221716 [id number] [id number] Interpreted by: SILVANO REDD DO Electronically signed by: SILVANO REDD DO 07/05/221716 [facility] [place] [place] [facility] REC#: [id number] PT STATUS: REG ER : 1960 PHYSICIAN: CARLA ALMONTE APRN ADMIT DATE: 07/05/22/ER Signed Date of Exam:07/05/22 PELVIS WITH RIGHT HIP 2-3VIEWS CLINICAL HISTORY: Fall. Right hip pain. COMPARISON: None. TECHNIQUE: 3 views of the pelvis and right hip. FINDINGS: Nondisplaced fracture seen involving the neck of the proximal right femur. No dislocation of the right femur. No fracture is identified in the pelvis. No suspicious focal osseous lesions are seen. IMPRESSION: 1. Nondisplaced fracture involving the neck of the proximal right femur. No dislocation of the right hip. Dictated by: Dictated on workstation # [id number] Dict: 07/05/221709 Trans: 07/05/221716 CV [id number] Interpreted by: SILVANO REDD DO Electronically signed by: SILVANO REDD DO 07/05/221716 Assessment/Plan Admission Diagnosis right femur fracture Admission Status: Inpatient Order (span 2 midnights) Reason for Inpatient Admission: see below Assessment and Plan Nondisplaced right femur fracture Ortho consulted, appreciate recs Morphine for pain Plan for OR today Intellectual disability Nonverbal Seizure disorder Continue home meds as able Seizure precautions DVT ppx: Lovenox postop Diagnosis/Problems Diagnosis/Problems (1) Development delay (2) Intellectual disability (3) Seizure disorder (4) Fracture of femoral neck, right Qualifiers: Encounter type: initial encounter Fracture type: closed Qualified Codes: S72.001A - Fracture of unspecified part of neck of right femur, initial encounter for closed fracture SANDRA KHAN MD Jul 06, 2022 07:49
[2022-07-06 08:28] LABS: HEMATOCRIT 37 % (35-52); MEAN CORPUSCULAR HEMOGLOBIN 31 pg (25-34); MEAN CORPUSCULAR HGB CONC 33 g/dL (32-36); MEAN CORPUSCULAR VOLUME 96 fL (80-99); PLATELET COUNT 217 10^3/uL (130-400); WHITE BLOOD COUNT 7.9 10^3/uL (4.3-11.0)
[2022-07-06 08:47] LABS: CALCIUM 9.2 MG/DL (8.5-10.1); CREATININE SERUM 0.64 MG/DL (0.60-1.30); POTASSIUM 4.1 MMOL/L (3.6-5.0)
[2022-07-06] MEDS: DIVALPROEX 250 MG DELAYED RELEASE (DEPAKOTE) TAB PO SCH ×3 (09:23→19:38)
[2022-07-06] MEDS ORDERED: HYDR453. TP (11:59)
[2022-07-06] MEDS ORDERED: MULT-422 PO (11:59)
[2022-07-06] MEDS ORDERED: NEOM1OIN19 TP (11:59)
[2022-07-06] MEDS ORDERED: IBUP-2473 PO (11:59)
[2022-07-06] MEDS ORDERED: MENT5LOZ4 MM (11:59)
[2022-07-06] MEDS ORDERED: DIPH25TA65 PO (11:59)
[2022-07-06] MEDS ORDERED: DOCU-143 PO (11:59)
[2022-07-06] MEDS ORDERED: BUPIVACAINE 0.5% 30 ML (SENSORCAINE) VIAL ONE (12:38)
[2022-07-06] MEDS ORDERED: ceFAZolin INJECTION 2,000 MG in NS (IVPB) 50 ML IV SCH (13:00)
[2022-07-06] MEDS: LACTATED RINGERS 1,000 ML IV PRN ×2 (13:05→14:18)
--- NOTE | 2022-07-06 13:10 | Progress Note-Pre Operative ---
Pre-Operative Progress Note Date of Available H&P: Jul 05, 2022 Date H&P Reviewed: Jul 06, 2022 Time H&P Reviewed: 13:05 Changes from last HP none Pre-Operative Diagnosis: right displaced femoral neck fracture SHAHLA QUINONEZ MD Jul 06, 2022 13:10
--- NOTE | 2022-07-06 13:11 | Progress Note-Post Operative ---
Post-Operative Progess Note Surgeon (s)/Cigar Packer And Grader (s) Surgeon SHAHLA QUINONEZ MD Cigar Packer And Grader: Jesus Palacios Pre-Operative Diagnosis right displaced femoral neck fracture Post-Operative Diagnosis right displaced femoral neck fracture Procedure & Operative Findings Date of Procedure 07/06/22 Procedure Performed/Findings right hip bipolar replacement Anesthesia Type GETA Estimated Blood Loss Estimated blood loss (mL): 200 ml Specimens/Packing Specimens Removed femoral head Packing: none SHAHLA QUINONEZ MD Jul 06, 2022 13:11
[2022-07-06] MEDS ORDERED: ROCURONIUM 10 MG/ML 5 ML SYRINGE IV ONE (13:14)
[2022-07-06] MEDS ORDERED: proPOfol 200 MG/20 ML (DIPRIVAN) VIAL IV ONE (13:14)
[2022-07-06] MEDS ORDERED: ONDANSETRON 4 MG/2 ML (SDV) Z0FRAN ONE (13:14)
[2022-07-06] MEDS ORDERED: LIDOCAINE PF 2% 5 ML (XYLOCAINE) VIAL ONE (13:14)
[2022-07-06] MEDS ORDERED: MIDAZOLAM 2 MG/2 ML (VERSED) VIAL ONE (13:14)
[2022-07-06] MEDS ORDERED: GLYCOPYRROLATE 0.2 MG/ML (ROBINUL) 2 ML VIAL ONE (13:14)
[2022-07-06] MEDS ORDERED: fentaNYL INJ 100 MCG/2 ML AMP ONE (13:14)
[2022-07-06] MEDS ORDERED: diphenhydrAMINE 50 MG/ML INJ (BENADRYL) IVP PRN (13:15)
[2022-07-06] MEDS ORDERED: TEMAZEPAM 15 MG (RESTORIL) CAP PO PRN (13:15)
[2022-07-06] MEDS ORDERED: ACETAMINOPHEN 325 MG TABLET PO PRN (13:15)
[2022-07-06] MEDS ORDERED: morphine INJ 4 MG/ML 1 ML (VIAL/SYRINGE) IVP PRN (13:15)
[2022-07-06] MEDS ORDERED: HYDROcodone/APAP 7.5 MG/325 MG (LORTAB, LORCET PLUS) TABLET PO PRN (13:15)
[2022-07-06] MEDS ORDERED: ONDANSETRON 4 MG/2 ML (SDV) Z0FRAN IVP PRN ×2 (13:15→15:15)
--- NOTE | 2022-07-06 13:46 | Occ Therapy Progress Note ---
Therapy Progress Note OT orders received and chart reviewed. Pt s/p R bipolar hip 07/06/22. Due to pt just having surgery today, OT will attempt evaluation on next available date. JOVI HALEY OT Jul 06, 2022 13:45
[2022-07-06] MEDS ORDERED: PHENYLEPHRINE 100 MCG/ML 10 ML (ANESTHESIA) SYR ONE (14:15)
--- NOTE | 2022-07-06 14:20 | Physical Therapy Progress Note ---
Therapy Progress Note PT to begin 07/07/22. RN aware. ABRAHAN DIEHL PT Jul 06, 2022 14:20
[2022-07-06] MEDS ORDERED: NEOSTIGMINE (BLOXIVERZ ) 1 MG/1ML 10 ML VIAL ONE (14:36)
[2022-07-06] MEDS ORDERED: SEVOFLURANE (ULTANE) 15 ML INHAL SOLN ONE (14:38)
--- NOTE | 2022-07-06 15:06 | Diagnostic Imaging Report ---
INDICATION: Postoperative evaluation, right hip arthroplasty COMPARISON: 07/05/2022 TECHNIQUE: Single radiograph of the right hip dated 07/06/2022 FINDINGS: Interval placement of a right hip arthroplasty with surgical clips overlying the lateral right hip and postsurgical subcutaneous emphysema present. No evidence of immediate hardware complication. No new fracture or dislocation. No destructive osseous process. No suspicious radiopaque foreign body. IMPRESSION: Recent placement of a right hip arthroplasty without hardware complication or suspicious radiopaque foreign body. Dictated by: Dictated on workstation # [id number]
[2022-07-06] MEDS ORDERED: morphine INJ 10 MG/ML 1ML (SYR OR VIAL) IVP ONE (15:15)
[2022-07-06] MEDS ORDERED: HYDROmorphone 2 MG/ML VIAL (DILAUDID) IV ONE (15:15)
[2022-07-06] MEDS: CEFUROXIME INJECTION 750 MG in NS (IVPB) 50 ML IV SCH (19:38)
[2022-07-06] MEDS: SENNOSIDES 8.6 MG (SENOKOT) TAB PO SCH (19:38)
--- NOTE | 2022-07-07 00:02 | OPERATIVE REPORT ---
DATE OF SERVICE: 07/06/2022 PREOPERATIVE DIAGNOSIS: Displaced right femoral neck fracture. POSTOPERATIVE DIAGNOSIS: Displaced right femoral neck fracture. PROCEDURE: Right hip bipolar replacement. SURGEON: Anastacio Quinonez MD SCIENCE CENTER DISPLAY BUILDER: Jesus Palacios, who assisted throughout the procedure and closed the incision. ANESTHESIA: General endotracheal by Dr. Lira. ESTIMATED BLOOD LOSS: 200 mL. DRAINS: None. COMPLICATIONS: None. POSTOPERATIVE PLAN: Routine hip protocol with weightbearing as tolerated. MATERIALS: Synthes 5 press-fit stem 49/28 head liner and standard neck. The patient was transferred to the recovery room awake and stable condition. STATEMENT OF MEDICAL NECESSITY: The patient is a 62-year-old mentally impaired female who fell at her home and was found to have a displaced femoral neck fracture. In order to maintain her weightbearing activities, the patient's caregivers elected to proceed with surgical intervention. DESCRIPTION OF PROCEDURE: After risks and benefits of procedure were discussed and questions were answered, informed consent was signed and placed on chart, the operative site was confirmed in the preoperative holding area initialed by the surgeon. The patient was then transferred to the operating room and after adequate levels of general endotracheal anesthetic were obtained, a timeout was called, confirming the operative site. The patient was then carefully placed in left lateral decubitus position, being careful to place an axillary roll and pad all bony prominences. The right hip and lower extremity were prepped and draped in the usual sterile fashion. A lateral approach was utilized. Hemostasis was obtained with cautery. The iliotibial band was incised in line with the incision. The abductor attachment was then released, leaving a 2 cm cuff for later reattachment. Hip capsulotomy was performed. The femoral neck cut was made at the proper level using the guide, the femoral head was removed and sized to a size 49. The 49 liner was trialled and had excellent coverage. The proximal femur was then prepared after copiously irrigating the acetabulum and ensuring that there were no loose bodies. The proximal femur was prepared with box chisel followed by the T-handle reamer and broaches to a size 5, 5 was used as a trial with a standard head and a 49 liner. Hip was reduced and found to be stable in all planes with no impingement noted with full range of motion noted. The hip was then redislocated. The trial was removed. The joint was irrigated with further pulse lavage. The 5 press-fit stem was placed in 15 degrees of anteversion. The wound was further irrigated. The acetabulum was inspected. The head liner construct was placed and the hip was reduced. The hip was taken through range of motion, no impingement was noted. No instability was noted. Full range of motion was noted. The joint was further irrigated with pulse lavage. The capsule and abductor were reapproximated using #5 Tevdek in oflbzu-jq-sizka interrupted fashion with excellent repair obtained. The wound was further irrigated. The iliotibial band was closed in a running fashion with #1 Vicryl. A 0 Vicryl was used to deep subcutaneous layer, 2-0 Vicryl for the superficial subcutaneous layer, ignacio used on the skin. A soft dressing was applied. The patient transferred to recovery room awake and in stable condition. Job ID: [id number] DocumentID: [id number] Dictated Date: 07/06/2022 14:40:12 Smokehouse Operator Date: 07/07/2022 00:01:57 Dictated By: ANASTACIO QUINONEZ MD
[2022-07-07] MEDS: NS IV 1000 ML 1,000 ML IV SCH ×4 (00:53→21:25)
[2022-07-07 03:26] VITALS: BP 123/63
[2022-07-07] MEDS: CEFUROXIME INJECTION 750 MG in NS (IVPB) 50 ML IV SCH (05:14)
[2022-07-07 05:44] LABS: HEMOGLOBIN 10.1 g/dL (11.5-16.0)
[2022-07-07] MEDS: MULTIVIT W/MINERALS TAB (THERAGRAN M) PO SCH (05:57)
[2022-07-07 08:04] VITALS: BP 107/64
[2022-07-07] MEDS: DIVALPROEX 250 MG DELAYED RELEASE (DEPAKOTE) TAB PO SCH ×3 (08:28→19:30)
[2022-07-07] MEDS: SENNOSIDES 8.6 MG (SENOKOT) TAB PO SCH ×2 (08:28→19:30)
[2022-07-07] MEDS: ENOXAPARIN 40 MG/0.4 ML (LOVENOX) SYR SC SCH (08:31)
--- NOTE | 2022-07-07 08:40 | Progress Note ---
Standard Progress Note Progress Notes/Assess & Plan Date Seen by a Provider: Jul 07, 2022 Time Seen by a Provider: 08:38 Progress/Assessment & Plan no complaints radiograph0--HW well positioned without fracture RLE--dressing intact intact DF and PF of toes and ankle s/p R bipolar PT as tolerated SHAHLA QUINONEZ MD Jul 07, 2022 08:39
--- NOTE | 2022-07-07 09:03 | Physical Therapy Evaluation ---
PT Evaluation-General Medical Diagnosis Admission Date Jul 05, 2022 at 19:17 Medical Diagnosis: right femoral neck fracture Onset Date: Jul 05, 2022 Therapy Diagnosis Therapy Diagnosis: debility Height/Weight Height (Feet): 5 Height (Inches): 4.00 Weight (Pounds): 132 Weight (Ounces): 0.0 Precautions Precautions/Isolations: Fall Prevention, Standard Precautions, Pressure Ulcer Referral Physician: Kristy Reason for Referral: Evaluation/Treatment Medical History History of Falls (past yr): Yes Prior Surgery (last 100 days): No Additional Medical History seizures/MR Current History EMS from [place] secondary to fall Reviewed History: Yes Social History Home: [facility] Prior Prior Level of Function SCALE: Activities may be completed with or without assistive devices. 3-Lurosfigdl-wyjjvxp completes the activity by him/herself with no assistance from a helper. 5-Set-up or Clean-up Assistance-helper sets up or cleans up; patient completes activity. [place] assists only prior to or following the activity. 4-Supervision or Touching Assistance-helper provides verbal cues and/or touching/steadying and/or contact guard assistance as patient completes activity. Assistance may be provided throughout the activity or intermittently. 3-Partial/Moderate Assistance-helper does LESS THAN HALF the effort. [place] lifts, holds or supports trunk or limbs, but provides less than half the effort. 2-Substantial/Maximal Assistance-helper does MORE THAN HALF the effort. [place] lifts or holds trunk or limbs and provides more than half the effort. 5-Cdiigaezn-ploecw does ALL the effort. Patient does none of the effort to complete the activity. Or, the assistance of 2 or more helpers is required for the patient to complete the activity. If activity was not attempted, code reason: 7-Patient Refused. 9-Not Applicable-not attempted and the patient did not perform the activity before the current illness, exacerbation or injury. 10-Not Attempted due to Environmental Limitations-(lack of equipment, weather restraints, etc.). 88-Not Attempted due to Medical Conditions or Safety Concerns. Bed Mobility: 4 Transfers (B,C,W/C): 4 Gait: 4 Indoor Mobility (Ambulation): Independent Prior Devices Use: None PT Evaluation-Current Subjective Patient is non verbal Objective Patient Orientation: MR, Non-Verbal/Aphasic Attachments: Menendez Catheter, IV ROM/Strength ROM Lower Extremities right LE WFL Strength Lower Extremities 3-/5 grossly bilateral LE ( no formal testing) Integumentary/Posture Bowel Incontinence: Yes Bladder Incontinence: Yes Posture WFL Neuromuscular (Tone, Coordination, Reflexes) grossly intact Sensory Vision: Unable to Assess Hearing: Unable to Assess Transfers Lying to Sitting/Side of Bed(Q: 1 Sit to Stand (QC): 1 Chair/Yez-xv-Zvlxl Xfer(QC): 1 (SPT) Gait Mode of Locomotion: Walk Anticipated Mode of Locomotion: Walk Walk 10 feet (QC): 88 Walk 50 ft with 2 Turns(QC): 88 Walk 150 ft (QC): 88 Gait Assistive Device: FWW Balance Sitting Static: Fair Sitting Dynamic: Fair Standing Static: Poor Standing Dynamic: Poor Assessment/Needs Patient unable to follow simple direction with all mobility. Patient requires dependent assist to perform all mobility at this time. Patient does have IV and menendez which she is pulling on. PT gave patient a textured ball to distract from pulling on tubing. Chair alarm in recliner and activated for patient's safety. Rehab Potential: Fair PT Penitentiary Goals Penitentiary Goals PT Bone Crusher Goals Time Frame: Jul 14, 2022 Roll Left & Right (QC): 2 Sit to Lying (QC): 2 Lying-Sitting on Side/Bed(QC): 2 Sit to Stand (QC): 2 Chair/Vqv-gw-Rwjkw Xfer(QC): 2 Toilet Transfer (QC): 2 Walk 10 feet (QC): 2 PT Plan Problem List Problem List: Activity Tolerance, Functional Strength, Safety, Balance, Gait, Transfer, Bed Mobility Treatment/Plan Treatment Plan: Continue Plan of Care Treatment Plan: Bed Mobility, Education, Functional Activity Leena, Functional Strength, Gait, Safety, Therapeutic Exercise, Transfers Treatment Duration: Jul 14, 2022 Frequency: 6 times per week Estimated Hrs Per Day: .25 hour per day Time/GCodes Time In: 730 Time Out: 745 Total Billed Treatment Time: 15 Total Billed Treatment 1 visit EVMod 15 min ABRAHAN DIEHL PT Jul 07, 2022 09:03
--- NOTE | 2022-07-07 09:29 | Anesthesia-General Post-Op ---
General Patient Condition Mental Status/LOC: Same as Preop Cardiovascular: Satisfactory Nausea/Vomiting: Absent Respiratory: Satisfactory Pain: Controlled Complications: Absent Post Op Complications Complications None Follow Up Care/Instructions Patient Instructions None needed. Anesthesia/Patient Condition Patient Condition Patient is doing well, no complaints, stable vital signs, no apparent adverse anesthesia problems. No complications reported per nursing. D[place]C home per [facility] Criteria: Yes BRYSON FUENTES CRNA Jul 07, 2022 09:29
[2022-07-07 11:08] VITALS: BP 102/58
--- NOTE | 2022-07-07 14:09 | Progress Note - Hospitalist ---
Subjective HPI/CC On Admission Date Seen by Provider: Jul 07, 2022 Patient is a 62-year-old female with past medical history of seizure disorder, intellectual disability who is nonverbal and presented to the emergency department following a fall. As stated above she is nonverbal so all history is obtained from the records. There is no caregiver at bedside. Caregiver reported to the emergency department yesterday that she stood up and had a mechanical fall. She tripped and landed on her right side. She then had right hip and upper leg pain. Imaging was done and revealed an acute fracture. She is being admitted for operative repair. RN reports no concerns overnight. Subjective/Events-last exam Pt sitting up in chair. Appears comfortable. Nonverbal and no family at bedside. RN reports doing well. Objective Exam Vital Signs Vital Signs Date Time Temp Pulse Resp B/P (MAP) Pulse Ox O2 Delivery O2 Flow Rate FiO2 07/07/22 11:08 36.2 91 16 102/58 (73) 97 Nasal Cannula 2.00 Capillary Refill : Less Than 3 Seconds General Appearance: No Apparent Distress, Chronically ill, Thin Respiratory: Lungs Clear, No Respiratory Distress Cardiovascular: Regular Rate, Rhythm, No Murmur Neurologic/Psychiatric: Alert Results/Procedures Lab Laboratory Tests 07/07/22 05:29 Patient resulted labs reviewed. Imaging: Reviewed Imaging Report Assessment/Plan Assessment and Plan Assess & Plan/Chief Complaint Nondisplaced right femur fracture Ortho consulted, appreciate recs Pain regimen Bowel regimen POD #1 PT/OT Intellectual disability Nonverbal Seizure disorder Continue home meds as able Seizure precautions DVT ppx: Lovenox postop Diagnosis/Problems Diagnosis/Problems (1) Development delay (2) Intellectual disability (3) Seizure disorder (4) Fracture of femoral neck, right Qualifiers: Encounter type: initial encounter Fracture type: closed Qualified Codes: S72.001A - Fracture of unspecified part of neck of right femur, initial encounter for closed fracture SANDRA BECKHAM MD Jul 07, 2022 14:09
[2022-07-07] MEDS ORDERED: TETRAHYDROZOLINE (VISINE) 0.05% 15 ML BTL OU PRN (14:15)
[2022-07-07 15:18] VITALS: BP 127/77
[2022-07-07 19:19] VITALS: BP 145/59
[2022-07-07] MEDS: DOCUSATE SODIUM 100 MG (COLACE) CAP PO SCH (19:30)
[2022-07-07] MEDS: LORATADINE (CLARITIN) 10 MG TAB PO SCH (19:30)
[2022-07-07] MEDS ORDERED: NON-FORMULARY MEDICATION 1 EA EA (Cetirizine HCl (Zyrtec) 10 MG) PO SCH (21:00)
[2022-07-07 23:15] VITALS: BP 133/75
[2022-07-08] MEDS: MULTIVIT W/MINERALS TAB (THERAGRAN M) PO SCH (05:20)
[2022-07-08 05:38] LABS: HEMOGLOBIN 8.9 g/dL (11.5-16.0)
[2022-07-08] MEDS: NS IV 1000 ML 1,000 ML IV SCH (06:18)
[2022-07-08 07:01] VITALS: BP 126/78
--- NOTE | 2022-07-08 08:06 | Progress Note ---
Standard Progress Note Progress Notes/Assess & Plan Date Seen by a Provider: Jul 08, 2022 Time Seen by a Provider: 08:05 Progress/Assessment & Plan no complaints radiograph0--HW well positioned without fracture RLE--dressing intact intact DF and PF of toes and ankle s/p R bipolar PT as tolerated Final Diagnosis no complaints Vital Signs Date Time Temp Pulse Resp B/P (MAP) Pulse Ox O2 Delivery O2 Flow Rate FiO2 07/08/22 07:01 37.4 100 16 126/78 (94) 99 Nasal Cannula 2.00 07/07/22 23:15 37.4 106 18 133/75 (94) 96 Nasal Cannula 2.00 07/07/22 19:37 Nasal Cannula 2.00 07/07/22 19:19 37.3 110 16 145/59 (87) 97 Nasal Cannula 2.00 07/07/22 15:18 36.7 70 16 127/77 (94) 95 Nasal Cannula 2.00 07/07/22 11:08 36.2 91 16 102/58 (73) 97 Nasal Cannula 2.00 I & O 07/08/22 07:00 Intake Total 3540 ml Output Total 1400 ml Balance 2140 ml Laboratory Tests Test 07/08/22 05:16 Range/Units Hemoglobin 8.9 L 11.5-16.0 g/dL Hematocrit 28 L 35-52 % R hip incision clean and dry no calf tenderness s/p R hip bipolar SHAHLA Frank MD Jul 08, 2022 08:06
[2022-07-08] MEDS: DIVALPROEX 250 MG DELAYED RELEASE (DEPAKOTE) TAB PO SCH ×2 (08:17→19:32)
[2022-07-08] MEDS: DOCUSATE SODIUM 100 MG (COLACE) CAP PO SCH ×2 (08:17→19:32)
[2022-07-08] MEDS: SENNOSIDES 8.6 MG (SENOKOT) TAB PO SCH ×2 (08:17→19:32)
[2022-07-08] MEDS: ENOXAPARIN 40 MG/0.4 ML (LOVENOX) SYR SC SCH (08:18)
[2022-07-08 11:07] VITALS: BP 116/68
--- NOTE | 2022-07-08 11:08 | Progress Note - Hospitalist ---
Subjective HPI/CC On Admission Date Seen by Provider: Jul 08, 2022 Patient is a 62-year-old female with past medical history of seizure disorder, intellectual disability who is nonverbal and presented to the emergency department following a fall. As stated above she is nonverbal so all history is obtained from the records. There is no caregiver at bedside. Caregiver reported to the emergency department yesterday that she stood up and had a mechanical fall. She tripped and landed on her right side. She then had right hip and upper leg pain. Imaging was done and revealed an acute fracture. She is being admitted for operative repair. RN reports no concerns overnight. Subjective/Events-last exam Pt nonverbal. No family at bedside. RN Reports no concerns. Objective Exam Vital Signs Vital Signs Date Time Temp Pulse Resp B/P (MAP) Pulse Ox O2 Delivery O2 Flow Rate FiO2 07/08/22 09:31 Nasal Cannula 2.00 07/08/22 07:01 37.4 100 16 126/78 (94) 99 Capillary Refill : Less Than 3 Seconds General Appearance: No Apparent Distress, Thin Respiratory: Lungs Clear, No Respiratory Distress Cardiovascular: Regular Rate, Rhythm, No Murmur Gastrointestinal: Normal Bowel Sounds, Non Tender, Soft Neurologic/Psychiatric: Alert, Oriented x3 Results/Procedures Lab Laboratory Tests 07/08/22 05:16 Patient resulted labs reviewed. Imaging: Reviewed Imaging Report Assessment/Plan Assessment and Plan Assess & Plan/Chief Complaint Nondisplaced right femur fracture Ortho consulted, appreciate recs Pain regimen Bowel regimen POD #2 PT/OT Will likely need skilled placement upon discharge Intellectual disability Nonverbal Seizure disorder Continue home meds as able Seizure precautions DVT ppx: Lovenox Diagnosis/Problems Diagnosis/Problems (1) Development delay (2) Intellectual disability (3) Seizure disorder (4) Fracture of femoral neck, right Qualifiers: Encounter type: initial encounter Fracture type: closed Qualified Codes: S72.001A - Fracture of unspecified part of neck of right femur, initial encounter for closed fracture SANDRA BECKHAM MD Jul 08, 2022 11:08
[2022-07-08 16:25] VITALS: BP 115/68
[2022-07-08] MEDS: LORATADINE (CLARITIN) 10 MG TAB PO SCH (19:32)
[2022-07-08 23:00] VITALS: BP 135/83
[2022-07-09 05:35] LABS: HEMOGLOBIN 8.7 g/dL (11.5-16.0)
[2022-07-09] MEDS: MULTIVIT W/MINERALS TAB (THERAGRAN M) PO SCH (05:36)
[2022-07-09 07:40] VITALS: BP 110/66
[2022-07-09] MEDS: SENNOSIDES 8.6 MG (SENOKOT) TAB PO SCH ×2 (08:25→19:31)
[2022-07-09] MEDS: DIVALPROEX 250 MG DELAYED RELEASE (DEPAKOTE) TAB PO SCH ×2 (08:25→20:39)
[2022-07-09] MEDS: ENOXAPARIN 40 MG/0.4 ML (LOVENOX) SYR SC SCH (08:25)
[2022-07-09] MEDS: DOCUSATE SODIUM 100 MG (COLACE) CAP PO SCH ×2 (08:25→19:31)
--- NOTE | 2022-07-09 10:26 | Physical Therapy Daily Note ---
PT Daily Note-Current Pain Section J - Health Conditions 1. Rarely or not at all 2. Occasionally 3. Frequently 4. Almost constantly 8. Unable to answer Pain Effect on Sleep: 1 Pain Interference with Therapy: 1 Pain Interference w/Day-to-Day: 1 Mental Status Patient Orientation: MR, Non-Verbal/Aphasic Transfers SCALE: Activities may be completed with or without assistive devices. 6-Dctfwlkhcz-dzinzea completes the activity by him/herself with no assistance from a helper. 5-Set-up or Clean-up Assistance-helper sets up or cleans up; patient completes activity. [place] assists only prior to or following the activity. 4-Supervision or Touching Assistance-helper provides verbal cues and/or touching/steadying and/or contact guard assistance as patient completes activity. Assistance may be provided throughout the activity or intermittently. 3-Partial/Moderate Assistance-helper does LESS THAN HALF the effort. [place] lifts, holds or supports trunk or limbs, but provides less than half the effort. 2-Substantial/Maximal Assistance-helper does MORE THAN HALF the effort. [place] lifts or holds trunk or limbs and provides more than half the effort. 8-Xzhxmezix-tpbneb does ALL the effort. Patient does none of the effort to com plete the activity. Or, the assistance of 2 or more helpers is required for the patient to complete the activity. If activity was not attempted, code reason: 7-Patient Refused. 9-Not Applicable-not attempted and the patient did not perform the activity before the current illness, exacerbation or injury. 10-Not Attempted due to Environmental Limitations-(lack of equipment, weather restraints, etc.). 88-Not Attempted due to Medical Conditions or Safety Concerns. Sit to Lying (QC): 1 (x 2) Lying to Sitting/Side of Bed(Q: 1 (x 2) Sit to Stand (QC): 1 (x 2 x 3 sets) Gait Training Does the Patient Walk?: No and Walking Goal IS indicated Exercises Supine Ex: Ankle pumps, Heel Slides, Straight leg raise Supine Reps: 12 (PROM) Seated Therapy Exercises: Ankle pumps Seated Reps: 12 (PROM) Assessment Patient tolerated treatment and returned to supine with pillow under bilateral LE to relieve heel pressure and between LE's for abduction placement. Patient was found in IR right LE upon entering room. PT Manager Product Goals Mcfp Goals PT Manager Product Goals Time Frame: Jul 14, 2022 Roll Left & Right (QC): 2 Sit to Lying (QC): 2 Lying-Sitting on Side/Bed(QC): 2 Sit to Stand (QC): 2 Chair/Psh-jg-Hmdfc Xfer(QC): 2 Toilet Transfer (QC): 2 Walk 10 feet (QC): 2 PT Plan Treatment/Plan Treatment Plan: Continue Plan of Care Treatment Plan: Bed Mobility, Education, Functional Activity Leena, Functional Strength, Gait, Safety, Therapeutic Exercise, Transfers Treatment Duration: Jul 14, 2022 Frequency: 6 times per week Estimated Hrs Per Day: .25 hour per day Time/GCodes Time In: 915 Time Out: 924 Total Billed Treatment Time: 9 Total Billed Treatment 1 visit EX 9 min ABRAHAN DIEHL PT Jul 09, 2022 10:26
--- NOTE | 2022-07-09 11:46 | Occupational Therapy Eval ---
OT Evaluation-General/PLF Medical Diagnosis Admission Date Jul 05, 2022 at 20:02 Medical Diagnosis: right femoral neck fracture Onset Date: Jul 05, 2022 Therapy Diagnosis Therapy Diagnosis: decreased ADL status Height/Weight Height (Feet): 5 Height (Inches): 4.00 Weight (Pounds): 132 Weight (Ounces): 0.0 Precautions Precautions/Isolations: Fall Prevention, Standard Precautions, Pressure Ulcer Comments R hip precautions. Referral Physician: Kristy Referral Reason: Evaluation/Treatment Medical History Additional Medical History seizure disorder, intellectual disability (nonverbal) Current History s/p R bipolar hip replacement 07/06/22 after fall. Social History Home: [facility] ADL-Prior Level of Function SCALE: Activities may be completed with or without assistive devices. 1-Rvuceblnmq-kbmleth completes the activity by him/herself with no assistance from a helper. 5-Set-up or Clean-up Assistance-helper sets up or cleans up; patient completes activity. [place] assists only prior to or following the activity. 4-Supervision or Touching Assistance-helper provides verbal cues and/or touching/steadying and/or contact guard assistance as patient completes activity. Assistance may be provided throughout the activity or intermittently. 3-Partial/Moderate Assistance-helper does LESS THAN HALF the effort. [place] li fts, holds or supports trunk or limbs, but provides less than half the effort. 2-Substantial/Maximal Assistance-helper does MORE THAN HALF the effort. [place] lifts or holds trunk or limbs and provides more than half the effort. 2-Numxrahvl-tklxqd does ALL the effort. Patient does none of the effort to complete the activity. Or, the assistance of 2 or more helpers is required for the patient to complete the activity. If activity was not attempted, code reason: 7-Patient Refused. 9-Not Applicable-not attempted and the patient did not perform the activity before the current illness, exacerbation or injury. 10-Not Attempted due to Environmental Limitations-(lack of equipment, weather restraints, etc.). 88-Not Attempted due to Medical Conditions or Safety Concerns. ADL PLOF Comments Pt unable to provide information about PLOF, as she is nonverbal. Self Care: Needed Some Help Functional Cognition: Needed Some Help OT Current Status Subjective Pt nonverbal, followed therapist with her eyes, but unable to follow instructions for skilled therapy session. Resistive to all UE movements. Mental Status/Objective Patient Orientation: MR, Non-Verbal/Aphasic, Eyes Open Current Upper Extremity ROM grossly WFL, unable to assess due to pt resisting all PROM and unable to follow instructions for AROM Upper Extremity Coordination WFL. Pt has fidget ball in hands, turning and manipulating object without difficulty. Upper Extremity Strength grossly 3/5, pt resistive to all movements BUEs, PROM and AROM ADL-Treatment Eating (QC): 2 (Pt requires feeding assistance per nursing.) Shower/Bathe Self (QC): 1 (Pt would require total assist at this time, as pt unable to follow instructions.) Lower Body Dressing (QC): 1 (Pt would require total assist at this time, as pt unable to follow instructions.) On/Off Footwear (QC): 1 (Pt would require total assist at this time, as pt unable to follow instructions.) Other Treatments Pt in bed, fidget ball in her hands. Pt turning fidget ball around in her hand. OT removed ball from pt's hand and placed wash cloth, cuing pt to wash her face. Pt did not initiate any movement. OT attempted hand over hand assistance, but pt resistive to movements. OT placed ball back in pt's hand, then dependently washed pt's face and combed her hair. UE exercises attempted, pt unable to follow instructions for exercises, OT attempted PROM or AAROM, but pt resisted all movements. At this time, pt would require total assistance with LE dressing and footwear, pt has hip precautions and would have difficulty adhering to precautions, thus staff need to complete LE dressing for pt. Post tx, pt in bed, call light in reach and all needs met. Education OT Patient Education: Correct positioning, Modified ADL techniques, Progress toward Goal/Update tx plan, Purpose of tx/functional activities Teaching Recipient: Patient Teaching Methods: Demonstration, Discussion Response to Teaching: Unable to Return Demonstration, Unable to Comprehend OT Detention Goals Analytic Programmer Goals 1=Demonstrate adherence to instructed precautions during ADL tasks. 2=Patient will verbalize/demonstrate understanding of assistive devices/modifications for ADL. 3=Patient will improve strength/tolerance for activity to enable patient to perform ADL's. OT Education/Plan Problem List/Assessment Assessment: No Skilled OT Needs ID'd No skilled OT services indicated at this time, as pt is unable to follow instructions to participate in skilled tx, she is resistive to all movements, and would have difficulty learning/adhering to hip precautions with history of intellectual disability. Please send new orders if pt becomes more clear and is able to follow skilled instruction and is able to participate in treatment. At this time, d/c from OT. Discharge Recommendations Plan/Recommendations: Discharge/Goals Met Therapy Discharge Recommendati: Other, See Comments ([facility]) Barriers to Progress Intellectual disability limit pt's ability to learn and adhere to hip precautions in regards to LE dressing. Pt needs to have others complete LE dressing for her at this time. Treatment Plan/Plan of Care Patient would benefit from OT for education, treatment and training to promote independence in ADL's, mobility, safety and/or upper extremity function for ADL's. Plan of Care: ADL Retraining, UE Funct Exercise/Act Treatment Duration: Jul 09, 2022 Frequency: 1 time per week (eval only) Rehab Potential: Guarded Time/GCodes Start Time: 11:03 Stop Time: 11:11 Total Time Billed (hr/min): 8 Billed Treatment Time 1, JOVI HUNTER OT Jul 09, 2022 11:46
[2022-07-09 15:30] VITALS: BP 118/74
--- NOTE | 2022-07-09 18:18 | Progress Note - Hospitalist ---
Subjective HPI/CC On Admission Date Seen by Provider: Jul 09, 2022 Time Seen by Provider: 10:15 Patient is a 62-year-old female with past medical history of seizure disorder, intellectual disability who is nonverbal and presented to the emergency department following a fall. As stated above she is nonverbal so all history is obtained from the records. There is no caregiver at bedside. Caregiver reported to the emergency department yesterday that she stood up and had a mechanical fall. She tripped and landed on her right side. She then had right hip and upper leg pain. Imaging was done and revealed an acute fracture. She is being admitted for operative repair. RN reports no concerns overnight. Subjective/Events-last exam She is non-verbal. She opens her eyes. She appears comfortable. Objective Exam Vital Signs Vital Signs Date Time Temp Pulse Resp B/P (MAP) Pulse Ox O2 Delivery O2 Flow Rate FiO2 07/09/22 15:30 36.4 81 18 118/74 (89) 93 Room Air 07/09/22 08:00 2.00 Capillary Refill : Less Than 3 Seconds General Appearance: No Apparent Distress, Thin Respiratory: Lungs Clear, No Respiratory Distress Cardiovascular: Regular Rate, Rhythm, No Murmur Gastrointestinal: Normal Bowel Sounds, Soft Extremity: Normal Inspection, No Pedal Edema Neurologic/Psychiatric: Alert, Motor Weakness Skin: Normal Color, Warm/Dry Results/Procedures Lab Laboratory Tests 07/09/22 05:19 Patient resulted labs reviewed. Imaging: Reviewed Imaging Report Assessment/Plan Assessment and Plan Assess & Plan/Chief Complaint Nondisplaced right femur fracture Ortho following Pain regimen Bowel regimen POD #3 PT/OT SW consulted, assisting with discharge planning Intellectual disability Nonverbal Seizure disorder Continue home meds as able Seizure precautions DVT ppx: Lovenox Diagnosis/Problems Diagnosis/Problems (1) Fracture of femoral neck, right Qualifiers: Encounter type: initial encounter Fracture type: closed Qualified Codes: S72.001A - Fracture of unspecified part of neck of right femur, initial encounter for closed fracture (2) Intellectual disability Status: Chronic (3) Seizure disorder Status: Chronic (4) Debility Status: Acute TIKI BURNETTE MD Jul 09, 2022 18:18
[2022-07-09] MEDS: LORATADINE (CLARITIN) 10 MG TAB PO SCH (20:38)
[2022-07-10 00:09] VITALS: BP 129/75
[2022-07-10 05:31] LABS: HEMOGLOBIN 8.9 g/dL (11.5-16.0)
[2022-07-10] MEDS: MULTIVIT W/MINERALS TAB (THERAGRAN M) PO SCH (06:58)
[2022-07-10 07:28] VITALS: BP 123/78
[2022-07-10] MEDS: DOCUSATE SODIUM 100 MG (COLACE) CAP PO SCH ×2 (08:07→20:00)
[2022-07-10] MEDS: DIVALPROEX 250 MG DELAYED RELEASE (DEPAKOTE) TAB PO SCH ×2 (08:07→20:27)
[2022-07-10] MEDS: ENOXAPARIN 40 MG/0.4 ML (LOVENOX) SYR SC SCH (08:07)
[2022-07-10] MEDS: SENNOSIDES 8.6 MG (SENOKOT) TAB PO SCH ×2 (08:07→20:01)
--- NOTE | 2022-07-10 08:48 | Physical Therapy Daily Note ---
PT Daily Note-Current Pain Section J - Health Conditions 1. Rarely or not at all 2. Occasionally 3. Frequently 4. Almost constantly 8. Unable to answer Pain Effect on Sleep: 1 Pain Interference with Therapy: 1 Pain Interference w/Day-to-Day: 1 Mental Status Patient Orientation: Non-Verbal/Aphasic Transfers SCALE: Activities may be completed with or without assistive devices. 8-Rvqhyzmblw-ytwoeca completes the activity by him/herself with no assistance from a helper. 5-Set-up or Clean-up Assistance-helper sets up or cleans up; patient completes activity. [place] assists only prior to or following the activity. 4-Supervision or Touching Assistance-helper provides verbal cues and/or touching/steadying and/or contact guard assistance as patient completes activity. Assistance may be provided throughout the activity or intermittently. 3-Partial/Moderate Assistance-helper does LESS THAN HALF the effort. [place] lifts, holds or supports trunk or limbs, but provides less than half the effort. 2-Substantial/Maximal Assistance-helper does MORE THAN HALF the effort. [place] lifts or holds trunk or limbs and provides more than half the effort. 6-Nqduclqsj-iyeswx does ALL the effort. Patient does none of the effort to complete the activity. Or, the assistance of 2 or more helpers is required for the patient to complete the activity. If activity was not attempted, code reason: 7-Patient Refused. 9-Not Applicable-not attempted and the patient did not perform the activity b efore the current illness, exacerbation or injury. 10-Not Attempted due to Environmental Limitations-(lack of equipment, weather restraints, etc.). 88-Not Attempted due to Medical Conditions or Safety Concerns. Lying to Sitting/Side of Bed(Q: 1 Sit to Stand (QC): 1 Chair/Len-md-Lgaxv Xfer(QC): 1 Exercises Seated Therapy Exercises: Long arc quads Seated Reps: 15 (PROM) Assessment Patient unable to follow simple direction due to intellectual debility. Patient is up in recliner with chair alarm activated. Patient is resistive to all mobility. PT Nursing Home Goals Construction Accountant Goals PT Construction Accountant Goals Time Frame: Jul 14, 2022 Roll Left & Right (QC): 2 Sit to Lying (QC): 2 Lying-Sitting on Side/Bed(QC): 2 Sit to Stand (QC): 2 Chair/Npq-gs-Mrjpc Xfer(QC): 2 Toilet Transfer (QC): 2 Walk 10 feet (QC): 2 PT Plan Treatment/Plan Treatment Plan: Continue Plan of Care Treatment Plan: Bed Mobility, Education, Functional Activity Leena, Functional Strength, Gait, Safety, Therapeutic Exercise, Transfers Treatment Duration: Jul 14, 2022 Frequency: 6 times per week Estimated Hrs Per Day: .25 hour per day Time/GCodes Time In: 828 Time Out: 838 Total Billed Treatment Time: 10 Total Billed Treatment 1 visit FA 10 min ABRAHAN DIEHL PT Jul 10, 2022 08:48
[2022-07-10 15:36] VITALS: BP 125/76
--- NOTE | 2022-07-10 17:57 | Progress Note - Hospitalist ---
Subjective HPI/CC On Admission Date Seen by Provider: Jul 10, 2022 Time Seen by Provider: 10:30 Patient is a 62-year-old female with past medical history of seizure disorder, intellectual disability who is nonverbal and presented to the emergency department following a fall. As stated above she is nonverbal so all history is obtained from the records. There is no caregiver at bedside. Caregiver reported to the emergency department yesterday that she stood up and had a mechanical fall. She tripped and landed on her right side. She then had right hip and upper leg pain. Imaging was done and revealed an acute fracture. She is being admitted for operative repair. RN reports no concerns overnight. Subjective/Events-last exam She is non-verbal. She opens her eyes. She appears comfortable. Objective Exam Vital Signs Vital Signs Date Time Temp Pulse Resp B/P (MAP) Pulse Ox O2 Delivery O2 Flow Rate FiO2 07/10/22 15:36 36.8 106 18 125/76 (92) 93 Room Air 07/09/22 08:00 2.00 Capillary Refill : Less Than 3 Seconds General Appearance: No Apparent Distress, Thin Respiratory: Lungs Clear, No Respiratory Distress Cardiovascular: Regular Rate, Rhythm, No Murmur Gastrointestinal: Normal Bowel Sounds, Soft Neurologic/Psychiatric: Alert, Other (non-verbal) Results/Procedures Lab Laboratory Tests 07/10/22 05:20 Patient resulted labs reviewed. Imaging: Reviewed Imaging Report Assessment/Plan Assessment and Plan Assess & Plan/Chief Complaint Nondisplaced right femur fracture Ortho following Pain regimen Bowel regimen POD #4 PT/OT SW consulted, assisting with discharge planning Intellectual disability Nonverbal Seizure disorder Continue home meds as able Seizure precautions DVT ppx: Lovenox Diagnosis/Problems Diagnosis/Problems (1) Fracture of femoral neck, right Qualifiers: Encounter type: initial encounter Fracture type: closed Qualified Codes: S72.001A - Fracture of unspecified part of neck of right femur, initial encounter for closed fracture (2) Intellectual disability Status: Chronic (3) Seizure disorder Status: Chronic (4) Debility Status: Acute TIKI BURNETTE MD Jul 10, 2022 17:57
[2022-07-10] MEDS: LORATADINE (CLARITIN) 10 MG TAB PO SCH (20:27)
[2022-07-10 23:56] VITALS: BP 123/78
[2022-07-11] MEDS: MULTIVIT W/MINERALS TAB (THERAGRAN M) PO SCH (06:15)
[2022-07-11 07:54] VITALS: BP 130/77
[2022-07-11] MEDS: ENOXAPARIN 40 MG/0.4 ML (LOVENOX) SYR SC SCH (08:50)
[2022-07-11] MEDS: DIVALPROEX 250 MG DELAYED RELEASE (DEPAKOTE) TAB PO SCH ×2 (08:51→21:36)
[2022-07-11] MEDS: DOCUSATE SODIUM 100 MG (COLACE) CAP PO SCH ×2 (08:51→19:19)
[2022-07-11] MEDS: SENNOSIDES 8.6 MG (SENOKOT) TAB PO SCH ×2 (08:51→19:19)
--- NOTE | 2022-07-11 10:39 | Physical Therapy Daily Note ---
PT Daily Note-Current Subjective Patient in bed pre tx, is non-verbal. Pain Section J - Health Conditions 1. Rarely or not at all 2. Occasionally 3. Frequently 4. Almost constantly 8. Unable to answer Pain Effect on Sleep: 8 Pain Interference with Therapy: 8 Pain Interference w/Day-to-Day: 8 Appearance Patient in recliner post tx with nurse call, phone, tray, chair alarm on. Mental Status Patient Orientation: Unable to Assess, Non-Verbal/Aphasic Transfers SCALE: Activities may be completed with or without assistive devices. 8-Bvsorpdzhs-nhlihud completes the activity by him/herself with no assistance from a helper. 5-Set-up or Clean-up Assistance-helper sets up or cleans up; patient completes activity. [place] assists only prior to or following the activity. 4-Supervision or Touching Assistance-helper provides verbal cues and/or touching/steadying and/or contact guard assistance as patient completes activity. Assistance may be provided throughout the activity or intermittently. 3-Partial/Moderate Assistance-helper does LESS THAN HALF the effort. [place] lifts, holds or supports trunk or limbs, but provides less than half the effort. 2-Substantial/Maximal Assistance-helper does MORE THAN HALF the effort. [place] lifts or holds trunk or limbs and provides more than half the effort. 7-Qpokfdcnp-dgplmv does ALL the effort. Patient does none of the effort to complete the activity. Or, the assistance of 2 or more helpers is required for the patient to complete the activity. If activity was not attempted, code reason: 7-Patient Refused. 9-Not Applicable-not attempted and the patient did not perform the activity before the current illness, exacerbation or injury. 10-Not Attempted due to Environmental Limitations-(lack of equipment, weather restraints, etc.). 88-Not Attempted due to Medical Conditions or Safety Concerns. Roll Left & Right (QC): 1 Lying to Sitting/Side of Bed(Q: 1 Sit to Stand (QC): 1 Chair/Rry-fn-Sgnad Xfer(QC): 1 Assist of 2 for supine to sit, one therapist needed for sit to stand and transfers but still total assist, patient would not participate/assist. Exercises patient would not participate in LE exercise Assessment Current Status: Poor Progress no change in functional mobility PT Senior Director Of Strategy Goals Mcfp Goals PT Senior Director Of Strategy Goals Time Frame: Jul 14, 2022 Roll Left & Right (QC): 2 Sit to Lying (QC): 2 Lying-Sitting on Side/Bed(QC): 2 Sit to Stand (QC): 2 Chair/Afo-wo-Zitdy Xfer(QC): 2 Toilet Transfer (QC): 2 Walk 10 feet (QC): 2 PT Plan Problem List Problem List: Activity Tolerance, Functional Strength, Safety, Balance, Gait, Transfer, Bed Mobility, ROM Treatment/Plan Treatment Plan: Continue Plan of Care Treatment Plan: Bed Mobility, Education, Functional Activity Leena, Functional Strength, Gait, Safety, Therapeutic Exercise, Transfers Treatment Duration: Jul 14, 2022 Frequency: 6 times per week Estimated Hrs Per Day: .25 hour per day Safety Risks/Education Patient Education: Transfer Techniques, Correct Positioning, Safety Issues Teaching Recipient: Patient Teaching Methods: Demonstration, Discussion Response to Teaching: Reinforcement Needed Time/GCodes Time In: 1016 Time Out: 1026 Total Billed Treatment Time: 10 Total Billed Treatment 1 visit FA HALEY CALLAHAN PT Jul 11, 2022 10:39
--- NOTE | 2022-07-11 14:09 | Progress Note ---
Standard Progress Note Progress Notes/Assess & Plan Date Seen by a Provider: Jul 11, 2022 Time Seen by a Provider: 14:09 Progress/Assessment & Plan no complaints radiograph0--HW well positioned without fracture RLE--dressing intact intact DF and PF of toes and ankle s/p R bipolar PT as tolerated Final Diagnosis no complaints R hip incision clean and dry no calf tenderness neg Shannan's await placement SHAHLA QUINONEZ MD Jul 11, 2022 14:09
[2022-07-11 16:09] VITALS: BP 122/68
--- NOTE | 2022-07-11 17:11 | Progress Note - Hospitalist ---
Subjective HPI/CC On Admission Date Seen by Provider: Jul 11, 2022 Time Seen by Provider: 10:45 Patient is a 62-year-old female with past medical history of seizure disorder, intellectual disability who is nonverbal and presented to the emergency department following a fall. As stated above she is nonverbal so all history is obtained from the records. There is no caregiver at bedside. Caregiver reported to the emergency department yesterday that she stood up and had a mechanical fall. She tripped and landed on her right side. She then had right hip and upper leg pain. Imaging was done and revealed an acute fracture. She is being admitted for operative repair. RN reports no concerns overnight. Subjective/Events-last exam She is non-verbal. She is sitting in her chair. She appears comfortable. Objective Exam Vital Signs Vital Signs Date Time Temp Pulse Resp B/P (MAP) Pulse Ox O2 Delivery O2 Flow Rate FiO2 07/11/22 16:09 36.0 94 17 122/68 (86) 90 Room Air 07/09/22 08:00 2.00 Capillary Refill : Less Than 3 Seconds General Appearance: No Apparent Distress, Thin Respiratory: Lungs Clear, No Respiratory Distress Cardiovascular: Regular Rate, Rhythm, No Murmur Gastrointestinal: Normal Bowel Sounds, Soft Extremity: Normal Inspection, No Pedal Edema Neurologic/Psychiatric: Alert Skin: Normal Color, Warm/Dry Results/Procedures Lab Patient resulted labs reviewed. Imaging: Reviewed Imaging Report Assessment/Plan Assessment and Plan Assess & Plan/Chief Complaint Nondisplaced right femur fracture Ortho following Pain regimen Bowel regimen PT/OT SW consulted, assisting with discharge planning [place] denied due to COVID positive COVID Not hypoxic Diagnosed on screening test No treatment needed Moved to isolation room Intellectual disability Nonverbal Seizure disorder Continue home meds as able Seizure precautions DVT ppx: Lovenox Diagnosis/Problems Diagnosis/Problems (1) Fracture of femoral neck, right Qualifiers: Encounter type: initial encounter Fracture type: closed Qualified Codes: S72.001A - Fracture of unspecified part of neck of right femur, initial encounter for closed fracture (2) Intellectual disability Status: Chronic (3) Seizure disorder Status: Chronic (4) Debility Status: Acute TIKI BURNETTE MD Jul 11, 2022 17:11
[2022-07-11] MEDS: LORATADINE (CLARITIN) 10 MG TAB PO SCH (21:36)
[2022-07-11 23:32] VITALS: BP_SYST 11; BP_SYST 110; BP_DIAS 74
[2022-07-12] MEDS: MULTIVIT W/MINERALS TAB (THERAGRAN M) PO SCH (06:22)
[2022-07-12 07:50] VITALS: BP 120/72
[2022-07-12] MEDS: SENNOSIDES 8.6 MG (SENOKOT) TAB PO SCH ×2 (08:00→20:37)
[2022-07-12] MEDS: ENOXAPARIN 40 MG/0.4 ML (LOVENOX) SYR SC SCH (08:01)
[2022-07-12] MEDS: DIVALPROEX 250 MG DELAYED RELEASE (DEPAKOTE) TAB PO SCH ×2 (08:01→20:38)
[2022-07-12] MEDS: DOCUSATE SODIUM 100 MG (COLACE) CAP PO SCH ×2 (08:01→20:38)
--- NOTE | 2022-07-12 11:25 | Physical Therapy Daily Note ---
PT Daily Note-Current Subjective Patient is in bed and incontinent BM. RN in with PT to assist with ADL's and mobility Pain Section J - Health Conditions 1. Rarely or not at all 2. Occasionally 3. Frequently 4. Almost constantly 8. Unable to answer Pain Effect on Sleep: 8 Pain Interference with Therapy: 8 Pain Interference w/Day-to-Day: 8 Mental Status Patient Orientation: MR Transfers SCALE: Activities may be completed with or without assistive devices. 9-Vlorbepgpm-lptvsov completes the activity by him/herself with no assistance from a helper. 5-Set-up or Clean-up Assistance-helper sets up or cleans up; patient completes activity. [place] assists only prior to or following the activity. 4-Supervision or Touching Assistance-helper provides verbal cues and/or touching/steadying and/or contact guard assistance as patient completes activity. Assistance may be provided throughout the activity or intermittently. 3-Partial/Moderate Assistance-helper does LESS THAN HALF the effort. [place] lifts, holds or supports trunk or limbs, but provides less than half the effort. 2-Substantial/Maximal Assistance-helper does MORE THAN HALF the effort. [place] lifts or holds trunk or limbs and provides more than half the effort. 7-Pskbaknku-cdlvwl does ALL the effort. Patient does none of the effort to complete the activity. Or, the assistance of 2 or more helpers is required for the patient to complete the activity. If activity was not attempted, code reason: 7-Patient Refused. 9-Not Applicable-not attempted and the patient did not perform the activity before the current illness, exacerbation or injury. 10-Not Attempted due to Environmental Limitations-(lack of equipment, weather restraints, etc.). 88-Not Attempted due to Medical Conditions or Safety Concerns. Roll Left & Right (QC): 2 Lying to Sitting/Side of Bed(Q: 2 Sit to Stand (QC): 1 (x 2) Chair/Qeh-ck-Mdtse Xfer(QC): 1 (x 2) Gait Training Distance: 2 steps max assist of 2 Gait Assistive Device: FWW attempted with and without FWW/patient is very resistive with all upright mobility. Exercises Seated Therapy Exercises: Ankle pumps, Long arc quads Seated Reps: 15 (PROM) Assessment Patient up in recliner with chair alarm activated. Patient would benefit from returning to her familiar environment/staff to advance with mobility. PT Shelter Goals Busperson Goals PT Shelter Goals Time Frame: Jul 14, 2022 Roll Left & Right (QC): 2 Sit to Lying (QC): 2 Lying-Sitting on Side/Bed(QC): 2 Sit to Stand (QC): 2 Chair/Ozs-zb-Greqj Xfer(QC): 2 Toilet Transfer (QC): 2 Walk 10 feet (QC): 2 PT Plan Treatment/Plan Treatment Plan: Continue Plan of Care Treatment Plan: Bed Mobility, Education, Functional Activity Leena, Functional Strength, Gait, Safety, Therapeutic Exercise, Transfers Treatment Duration: Jul 14, 2022 Frequency: 6 times per week Estimated Hrs Per Day: .25 hour per day Time/GCodes Time In: 1020 Time Out: 1044 Total Billed Treatment Time: 24 Total Billed Treatment 1 visit FA x 2 24 min ABRAHAN DIEHL PT Jul 12, 2022 11:25
[2022-07-12] MEDS ORDERED: ACHD5005 PO (15:50)
[2022-07-12] MEDS ORDERED: DIVA500T PO ×2 (15:50)
[2022-07-12 15:57] VITALS: BP 121/82
--- NOTE | 2022-07-12 15:58 | D/C HH Face to Face Order ---
D/C Face to Face Orders Reconcile Patient Problems Problems Reviewed?: Yes Instructions for Patient Via [employer], Patient Instructions/FollowUp: See instructions Physician to follow Patient: Yany Discharge Diet for Home: No Restrictions Patient Data-Allergies,Ht & Wt Patient Allergies: Coded Allergies: No Known Drug Allergies (Unverified , 09/15/18) Height (Feet): 5 Height (Inches): 4.00 Weight (Pounds): 132 Weight (Ounces): 0.0 Home Health Need/Face to Face Date of Face to Face: Jul 12, 2022 Clinical Findings: Generalized weakness and fatigue, Instability, Muscle weakness, Unsteady gait I have seen Pt rvbu-ak-kzot: Yes Discharged To: Home Diagnosis/Conditions: Hip fracture Cognitive impairment Seizure disorder Debility Problems/Diagnosis/Condition: (1) Fracture of femoral neck, right (2) Development delay (3) Seizure disorder (4) Debility Patient is Homebound due to: CognItive deficits, [place] fall risk due to instabilty, Muscle weakness Homebound Status Due to the above stated illness, injury or surgical procedure (medical condition or diagnosis) and associated clinical findings, the patient is homebound because of his/her inability to leave home except with aid of a supportive device and/or person AND leaving the home requires a considerable and taxing effort or is medically contraindicated. Pt req the following assistanc: Aid of another person, Walker, Wheelchair Home Health Nursing Orders Home Health Services Order: Nursing Services, [place]-Evaluate & Treat, Physical Therapy-Evaluate & Treat Home Health Infusion Therapy Line Start Date: Jul 05, 2022 Therapy Orders Therapy Orders: OT (must have SN or PT order), Physical Therapy Therapy Specific Orders: Eval assistive deivces, Teach enviro modifications/safety, Gait training, Increase strength/endurance Certify Stmt I certify that this patient is under my care and that I, a nurse practitioner or a physician; a commissary assistant working with me, had a face to face encounter that - meets the physician face to face encounter requirements with this patient as dated. TIKI BURNETTE MD Jul 12, 2022 15:58
--- NOTE | 2022-07-12 16:08 | Progress Note - Hospitalist ---
Subjective HPI/CC On Admission Date Seen by Provider: Jul 12, 2022 Time Seen by Provider: 10:15 Patient is a 62-year-old female with past medical history of seizure disorder, intellectual disability who is nonverbal and presented to the emergency department following a fall. As stated above she is nonverbal so all history is obtained from the records. There is no caregiver at bedside. Caregiver reported to the emergency department yesterday that she stood up and had a mechanical fall. She tripped and landed on her right side. She then had right hip and upper leg pain. Imaging was done and revealed an acute fracture. She is being admitted for operative repair. RN reports no concerns overnight. Subjective/Events-last exam She is non-verbal. She opens her eyes. She appears comfortable. She is sitting in her chair. Objective Exam Vital Signs Vital Signs Date Time Temp Pulse Resp B/P (MAP) Pulse Ox O2 Delivery O2 Flow Rate FiO2 07/12/22 15:57 35.4 104 18 121/82 (95) 90 Room Air 07/09/22 08:00 2.00 Capillary Refill : Less Than 3 Seconds General Appearance: No Apparent Distress, Thin Respiratory: Lungs Clear, No Respiratory Distress Cardiovascular: Regular Rate, Rhythm, No Murmur Gastrointestinal: Normal Bowel Sounds, Soft Extremity: Normal Inspection, No Pedal Edema Neurologic/Psychiatric: Alert Skin: Normal Color, Warm/Dry Results/Procedures Lab Patient resulted labs reviewed. Imaging: Reviewed Imaging Report Assessment/Plan Assessment and Plan Assess & Plan/Chief Complaint Nondisplaced right femur fracture Ortho following Pain regimen Bowel regimen PT/OT SW consulted, assisting with discharge planning Discharge to [place] with home health tomorrow COVID Not hypoxic Diagnosed on screening test No treatment needed Moved to isolation room Intellectual disability Nonverbal Seizure disorder Continue home meds as able Seizure precautions DVT ppx: Lovenox Diagnosis/Problems Diagnosis/Problems (1) Fracture of femoral neck, right Qualifiers: Encounter type: initial encounter Fracture type: closed Qualified Codes: S72.001A - Fracture of unspecified part of neck of right femur, initial encounter for closed fracture (2) Intellectual disability Status: Chronic (3) Seizure disorder Status: Chronic (4) Debility Status: Acute TIKI BURNETTE MD Jul 12, 2022 16:08
[2022-07-12] MEDS: LORATADINE (CLARITIN) 10 MG TAB PO SCH (20:38)
[2022-07-13 00:22] VITALS: BP 126/81
[2022-07-13 07:48] VITALS: BP 101/64
[2022-07-13] MEDS: DOCUSATE SODIUM 100 MG (COLACE) CAP PO SCH (08:15)
[2022-07-13] MEDS: SENNOSIDES 8.6 MG (SENOKOT) TAB PO SCH (08:16)
[2022-07-13] MEDS: MULTIVIT W/MINERALS TAB (THERAGRAN M) PO SCH (08:30)
[2022-07-13] MEDS: ENOXAPARIN 40 MG/0.4 ML (LOVENOX) SYR SC SCH (08:30)
[2022-07-13] MEDS: DIVALPROEX 250 MG DELAYED RELEASE (DEPAKOTE) TAB PO SCH (08:30)
[2022-07-13 15:31] VITALS: BP 101/64
--- NOTE | 2022-07-13 18:37 | Discharge Summary ---
Discharge Summary Hospital Course Was the Problem List Reviewed?: Yes Problems/Dx: (1) Fracture of femoral neck, right Qualifiers: Qualified Codes: S72.001A - Fracture of unspecified part of neck of right femur, initial encounter for closed fracture (2) Intellectual disability Status: Chronic (3) Seizure disorder Status: Chronic (4) Debility Status: Acute Hospital Course Date of Admission: Jul 05, 2022 at 20:02 Admission Diagnosis : Right hip fracture Family Physician/Provider: Dani Xavier MD Date of Discharge: 07/13/22 Discharge Diagnosis: Right hip fracture, COVID Hospital Course: Arianne Whitlock is a 62 year old female with H intellectual disability, non- verbal, seizure disorder, who was admitted with a hip fracture. Orthopedic surgery was consulted and assisted with her care. She underwent right hip bipolar replacement. She did well postoperativey. She planned to [facility] a [facility] facility, but a screening test for COVID was positive. She remained asymptomatic. She was discharged back to [place] with home health for ongoing therapy. She should follow up with her PCP in a week or two. Labs and Pending Lab Test: Microbiology 07/06/22 MRSA Screen - Final, Complete MRSA not isolated Home Meds Active Hydrocodone-Acetamin 5-325 mg (Hydrocodone/Acetaminophen) 5 Mg-325 Mg Tablet 1 Tab PO Q4H PRN 7 Days Depakote (Divalproex Sodium) 500 Mg Tablet.dr 1,000 Mg PO HS 30 Days TAKES 2 (500MG) TABS Depakote (Divalproex Sodium) 500 Mg Tablet.dr 500 Mg PO DAILY 30 Days Reported Triple Antibiotic Ointment Pkt (Neomycin/Bacitracin/Polymyxinb) 3.5 Mg-400 Unit- 5,000 Unit/Gram Oint.pack 1 Applic TP Q8H PRN One Daily Plus Minerals (Multivitamin with Minerals) 1 Each Tablet 1 Each PO DAILY Hydrocortisone 1 % Cream..g. 1 Applic TP Q8H PRN Cough Drops (Menthol) 5 Mg Lozenge 5 Mg MM EVERY 1 HOUR PRN MDD 8 COUGH DROPS Colace (Docusate Sodium) 100 Mg Capsule 100 Mg PO BID Benadryl Allergy (Diphenhydramine HCl) 25 Mg Tablet 25-50 Mg PO Q6H PRN Ibuprofen 200 Mg Tablet 400 Mg PO Q6H PRN Zyrtec (Cetirizine HCl) 10 Mg Capsule 10 Mg PO HS Vitamin C (Ascorbic Acid) 500 Mg Capsule 500 Mg PO DAILY Tetrahydrozoline HCl 0.05 % Drops 2 Drops OU Q6H PRN Tylenol (Acetaminophen) 325 Mg Capsule 650 Mg PO Q6H PRN Tums (Calcium Carbonate) 200 Mg Tab.chew 400 Mg PO Q4H PRN Loperamide (Loperamide HCl) 2 Mg Tablet 2-4 Mg PO UD PRN MDD 8MG TAKE 2 TABS FOR FIRST WATERY STOOL AND MAY TAKE 1 TAB AFTER EACH LOOSE STOOL Robafen Dm Cough Liquid (Guaifenesin/Dextromethorphan) 118 Ml Liquid 10 Ml PO Q4H PRN Assessment/Pt Instructions See instructions Discharge Planning: >30 minutes discharge planning Discharge Instructions Discharge Diet: No Restrictions Activity as Tolerated: Yes Consultations Orthopedic surgery Discharge Physical Examination Vital Signs Vital Signs Date Time Temp Pulse Resp B/P (MAP) Pulse Ox O2 Delivery O2 Flow Rate FiO2 07/13/22 15:31 35.9 95 18 101/64 97 Room Air 2.00 General Appearance: No Apparent Distress, Thin Respiratory: Lungs Clear, No Respiratory Distress Cardiovascular: Regular Rate, Rhythm, No Murmur Gastrointestinal: Normal Bowel Sounds, Soft Extremity: Normal Inspection, No Pedal Edema Skin: Normal Color, Warm/Dry Neurologic/Psychiatric: Alert Allergies: Coded Allergies: No Known Drug Allergies (Unverified , 09/15/18) Copy Copies To 1: DANI XAVIER MD Discharge Summary Date of Admission Jul 05, 2022 at 20:02 Date of Discharge Jul 13, 2022 at 15:32 Discharge Date: Jul 13, 2022 Discharge Time: 15:32 Admission Diagnosis right femur fracture Consults/Procedures Consulations Orthopedic surgery Procedures Right hip bipolar replacement Discharge Diagnosis Nondisplaced right femur fracture COVID Intellectual disability Nonverbal Seizure disorder (1) Fracture of femoral neck, right Qualifiers: Qualified Codes: S72.001A - Fracture of unspecified part of neck of right femur, initial encounter for closed fracture (2) Intellectual disability Status: Chronic (3) Seizure disorder Status: Chronic (4) Debility Status: Acute TIKI BURNETTE MD Jul 13, 2022 18:37
== END 2022-07-13 15:32 | disposition home health service (06) | DRG 521 ==
LOC: EDUNIT# 16:20 → ER 16:22 → 4TH 19:17 → OBSVTOIN 20:02 → 4TH 07-11 13:41
PROVIDERS: ADMIT Family Medicine; ATTEND Internal Medicine
PROC: 0SRR0JA Replacement of Right Hip Joint, Femoral Surface with Synthetic Substitute, Uncemented, Open Approach (ICD-10-PCS; principal; 2022-07-06 13:17)
PROC: 8E0ZXY6 Isolation (ICD-10-PCS; 2022-07-11)
DX: S72.001A Fracture of unspecified part of neck of right femur, initial encounter for closed fracture (principal); U07.1 COVID-19; F79 Unspecified intellectual disabilities; G40.909 Epilepsy, unspecified, not intractable, without status epilepticus; R53.81 Other malaise; W18.30XA Fall on same level, unspecified, initial encounter
CPT/HCPCS: 36415; 73501; 73552; 80048; 80053; 85007; 85014; 85018; 85027; 87081; 87636; 94760; 96374

== ENCOUNTER → 2022-07-17 | Outpatient (CLI) | payer MEDICARE, MEDICAID ==
[~2022-07-17] MED LIST changes: +ACHD5005 PO; +DIPH25TA65 PO; +HYDR453. TP; +IBUP-2473 PO; +MENT5LOZ4 MM; +MULT-422 PO; +NEOM1OIN19 TP
== END ==
LOC: WOUNDCARE 09:59
PROVIDERS: ATTEND Family Medicine
DX: L89.610 Pressure ulcer of right heel, unstageable (principal); L89.622 Pressure ulcer of left heel, stage 2; F72 Severe intellectual disabilities; M62.81 Muscle weakness (generalized); R26.89 Other abnormalities of gait and mobility; Z68.22 Body mass index [BMI] 22.0-22.9, adult
CPT/HCPCS: 97597; 97598; A6212; G0463

== ENCOUNTER → 2022-07-27 | Outpatient (CLI) | payer MEDICARE, MEDICAID | LOC: WOUNDCARE 09:23 | PROVIDERS: ATTEND Family Medicine | DX: L89.610 Pressure ulcer of right heel, unstageable (principal); L89.622 Pressure ulcer of left heel, stage 2; F72 Severe intellectual disabilities; R53.1 Weakness; R26.89 Other abnormalities of gait and mobility; D46.4 Refractory anemia, unspecified; E44.0 Moderate protein-calorie malnutrition | CPT/HCPCS: 11042; A6212; G0463 ==

== ENCOUNTER → 2022-08-03 | Outpatient (CLI) | payer MEDICARE, MEDICAID | LOC: WOUNDCARE 08:14 | PROVIDERS: ATTEND Family Medicine | DX: I96 Gangrene, not elsewhere classified (principal); L89.613 Pressure ulcer of right heel, stage 3; F72 Severe intellectual disabilities; E44.0 Moderate protein-calorie malnutrition; D46.4 Refractory anemia, unspecified; R26.89 Other abnormalities of gait and mobility; M62.81 Muscle weakness (generalized); Z68.22 Body mass index [BMI] 22.0-22.9, adult | CPT/HCPCS: 99213 ==

== ENCOUNTER → 2022-08-10 | Outpatient (CLI) | payer MEDICARE, MEDICAID | LOC: WOUNDCARE 09:13 | PROVIDERS: ATTEND Family Medicine | DX: F72 Severe intellectual disabilities (principal); R53.1 Weakness; R26.89 Other abnormalities of gait and mobility; D46.4 Refractory anemia, unspecified; E44.0 Moderate protein-calorie malnutrition | CPT/HCPCS: 99212 ==